=== PATIENT | male | born 1970 | race American Indian/Alaskan Native ===

== ENCOUNTER 2018-01-13 16:08 | Inpatient (IN) | payer OTHER ==
[2018-01-13] MEDS ORDERED: Pantoprazole 80 MG in Sodium Chloride 0.9% 100 ML IV ONE (16:30)
[2018-01-13] MEDS ORDERED: Sodium Chloride 0.9% 2,000 ML IV SCH (16:30)
[2018-01-13] MEDS: Sodium Chloride 0.9% 10 ML Syringe FLUSH PRN ×2 (16:41→19:10)
[2018-01-13] MEDS ORDERED: Thiamine 100 MG in Sodium Chloride 0.9% 100 ML IV ONE (16:42)
[2018-01-13] MEDS ORDERED: MVI, Adult with Vitamin K 10 ML SDV IV ONE (16:43)
[2018-01-13] MEDS: Sodium Chloride 0.9% 1,000 ML IV SCH ×2 (16:49→19:31)
--- NOTE | 2018-01-13 16:54 | EDM.PDOC ---
ED HPI GENERAL MEDICAL PROBLEM - General Chief Complaint: Gastrointestinal Problem Stated Complaint: VOMITING BLOOD Time Seen by Provider: 01/13/18 16:20 Source of Information: Reports: Patient, Family History Limitations: Reports: No Limitations - History of Present Illness INITIAL COMMENTS - FREE TEXT/NARRATIVE: Marko Seymour is a [employer] member from [place], [place] who experienced some bloody emesis last pm, and passed some dark loose stools today. His eyes have become jaundiced, and urine is dark in color. He has a chronic hx of ETOHism according to his son, without reported past complications. There is no reported hx of clotting disorder, liver disease, esophageal varicies, CA, PUD or surgery. He has meds for HBP and chronic back pain, but compliance is unknown. His son cannot recall the last time father has seen a physician. - Related Data Allergies Allergy/AdvReac Type Severity Reaction Status Date / Time No Known Allergies Allergy Verified 01/13/18 16:30 Home Meds: Home Meds . [Unable to Verify Home Med List] 01/13/18 [History] Past Medical History Cardiovascular History: Reports: Hypertension Musculoskeletal History: Reports: Back Pain, Chronic ED ROS GENERAL - Review of Systems Review Of Systems: See Below Constitutional: Reports: Malaise, Fatigue, Decreased Appetite HEENT: Reports: No Symptoms Respiratory: Reports: No Symptoms Cardiovascular: Reports: Lightheadedness Endocrine: Reports: Fatigue GI/Abdominal: Reports: Black Stool, Bloody Stool, Decreased Appetite, Hematemesis, Vomiting : Reports: Other (dark urine) Musculoskeletal: Reports: Back Pain Skin: Reports: Pallor, Bruising Neurological: Reports: Tremors Psychiatric: Reports: Other (ETOHism) Hematologic/Lymphatic: Reports: Easy Bruising Immunologic: Reports: No Symptoms ED EXAM, GI/ABD - Physical Exam Exam: See Below General Appearance: Alert, WD/WN, No Apparent Distress Eyes: Bilateral: EOMI (icterus) Ears: Normal External Exam Nose: Normal Inspection Throat/Mouth: Normal Lips, Normal Voice, No Airway Compromise, Other (poor dentition, extensive gum disease) Head: Normocephalic Neck: Normal Inspection, Supple, Non-Tender Respiratory/Chest: Lungs Clear, Normal Breath Sounds, Chest Non-Tender Cardiovascular: Regular Rate, Rhythm, No JVD, No Murmur, Other (edema 1+) GI/Abdominal Exam: Normal Bowel Sounds, Soft, Non-Tender, Distended, Hepatomegaly (Male) Exam: No Hernia Back Exam: Normal Inspection Extremities: Normal Range of Motion, Non-Tender, Pallor, Other (purpura) Neurological: Alert, Oriented, CN II-XII Intact Psychiatric: Flat Affect Skin Exam: Warm, Dry, Jaundice Lymphatic: No Adenopathy Course - Vital Signs Text/Narrative:: Following assessment at the [facility] ED, an IV was started in the LUE, administration of 2 L of NS, Protonix 80 mg IV, Thiamine 100 mg, Multivits 1 amp , Vit K 10 mg SC, and 6 units of PRBCs were set up for administration. He will be admitted to ICU. Last Recorded V/S: Last Vital Signs Temp 36.9 C 01/14/18 13:13 Pulse 86 01/14/18 00:33 Resp 18 01/14/18 13:13 BP 145/70 H 01/14/18 13:13 Pulse Ox 100 01/14/18 13:13 - Orders/Labs/Meds Orders: Active Orders 24 hr Category Date Time Status Chest 1V Frontal [CR] Stat Exams 01/13/18 16:46 Taken DRUG SCREEN, URINE ALERE [URCHEM] Stat Lab 01/13/18 21:16 Ordered PATIENT RETYPE [BBK] Stat Lab 01/13/18 16:38 Results RED BLOOD CELLS LP [BBK] Stat Lab 01/13/18 16:38 Results TYPE AND SCREEN [BBK] Stat Lab 01/13/18 16:38 Results UA W/MICROSCOPIC [URIN] Stat Lab 01/13/18 21:16 Ordered Sodium Chloride 0.9% [Saline Flush] Med 01/13/18 16:29 Active 10 ml FLUSH ASDIRECTED PRN Peripheral IV Insertion Adult [OM.PC] Routine Oth 01/13/18 16:29 Ordered Transfuse Red Blood Cells [COMM] Urgent Oth 01/13/18 16:55 Ordered Medication Orders Sodium Chloride (Normal Saline) 1,000 mls @ 100 mls/hr IV ASDIRECTED KERI Stop: 01/18/18 02:35 Sodium Chloride (Normal Saline) 250 mls @ 100 mls/hr IV ASDIRECTED KERI Lorazepam (Ativan) 0 mg PO ASDIRECTED KERI; Protocol Polyethylene Glycol/Electrolytes (Golytely) 4,000 ml PO ONETIME ONE Stop: 01/14/18 16:01 Sodium Chloride (Saline Flush) 10 ml FLUSH ASDIRECTED PRN PRN Reason: Keep Vein Open Last Admin: 01/13/18 19:10 Dose: 10 ml Admin: 01/13/18 16:41 Dose: 10 ml Labs: Laboratory Tests 01/13/18 01/13/18 01/13/18 Range/Units 16:38 16:38 16:38 WBC 13.2 H (4.5-12.0) X10-3/uL RBC 1.58 L (4.30-5.75) x10(6)uL Hgb 4.8 L* (11.5-15.5) g/dL Hct 14.9 L* (30.0-51.3) % MCV 94.5 (80-96) fL MCH 30.6 (27.7-33.6) pg MCHC 32.4 (32.2-35.4) g/dL RDW 21.6 H (11.5-15.5) % Plt Count 143 (125-369) X10(3)uL MPV 8.5 (7.4-10.4) fL Add Manual Diff Yes Neutrophils % (Manual) 71 (46-82) % Band Neutrophils % 3 (0-6) % Lymphocytes % (Manual) 15 (13-37) % Monocytes % (Manual) 11 (4-12) % Polychromasia Moderate H Anisocytosis Many H Target Cells Few PT 19.3 H (8.7-11.1) INR 1.89 H (0.89-1.13) Sodium 141 (135-145) mmol/L Potassium 3.2 L (3.5-5.3) mmol/L Chloride 107 (100-110) mmol/L Carbon Dioxide 24 (21-32) mmol/L BUN 34 H (7-18) mg/dL Creatinine 1.4 H (0.70-1.30) mg/dL Est Cr Clr Drug Dosing TNP Estimated GFR (MDRD) 54 L (>60) BUN/Creatinine Ratio 24.3 H (9-20) Glucose 138 H (80-116) mg/dL Calcium 8.1 L (8.6-10.2) mg/dL Total Bilirubin 7.3 H (0.1-1.3) mg/dL AST 81 H (5-25) IU/L ALT 30 (12-36) U/L Alkaline Phosphatase 98 (56-112) IU/L Total Protein 6.6 (6.0-8.0) g/dL Albumin 2.3 L (3.5-5.2) g/dL Globulin 4.3 g/dL Albumin/Globulin Ratio 0.5 Amylase (25-115) U/L Ethyl Alcohol (<0.03) % Blood Type Gel Antibody Screen Crossmatch 01/13/18 01/13/18 01/13/18 Range/Units 16:38 16:38 16:38 WBC (4.5-12.0) X10-3/uL RBC (4.30-5.75) x10(6)uL Hgb (11.5-15.5) g/dL Hct (30.0-51.3) % MCV (80-96) fL MCH (27.7-33.6) pg MCHC (32.2-35.4) g/dL RDW (11.5-15.5) % Plt Count (125-369) X10(3)uL MPV (7.4-10.4) fL Add Manual Diff Neutrophils % (Manual) (46-82) % Band Neutrophils % (0-6) % Lymphocytes % (Manual) (13-37) % Monocytes % (Manual) (4-12) % Polychromasia Anisocytosis Target Cells PT (8.7-11.1) INR (0.89-1.13) Sodium (135-145) mmol/L Potassium (3.5-5.3) mmol/L Chloride (100-110) mmol/L Carbon Dioxide (21-32) mmol/L BUN (7-18) mg/dL Creatinine (0.70-1.30) mg/dL Est Cr Clr Drug Dosing Estimated GFR (MDRD) (>60) BUN/Creatinine Ratio (9-20) Glucose (80-116) mg/dL Calcium (8.6-10.2) mg/dL Total Bilirubin (0.1-1.3) mg/dL AST (5-25) IU/L ALT (12-36) U/L Alkaline Phosphatase (56-112) IU/L Total Protein (6.0-8.0) g/dL Albumin (3.5-5.2) g/dL Globulin g/dL Albumin/Globulin Ratio Amylase 38 (25-115) U/L Ethyl Alcohol < 0.03 (<0.03) % Blood Type O POSITIVE Gel Antibody Screen Negative Crossmatch See Detail Meds: Medications Generic Name Dose Route Start Last Admin Trade Name Bobq PRN Reason Stop Dose Admin Sodium Chloride 1,000 mls @ 100 mls/hr 01/14/18 08:17 Normal Saline IV 01/18/18 02:35 ASDIRECTED KERI Sodium Chloride 250 mls @ 100 mls/hr 01/14/18 11:00 Normal Saline IV ASDIRECTED KERI Lorazepam 0 mg 01/14/18 11:15 Ativan PO ASDIRECTED KERI Protocol Polyethylene Glycol/Electrolytes 4,000 ml 01/14/18 16:00 Golytely PO 01/14/18 16:01 ONETIME ONE Sodium Chloride 10 ml 01/13/18 16:29 01/13/18 19:10 Saline Flush FLUSH 10 ml ASDIRECTED PRN Administration Keep Vein Open Discontinued Medications Generic Name Dose Route Start Last Admin Trade Name Hector PRN Reason Stop Dose Admin Pantoprazole Sodium 80 mg/ 100 mls @ 200 mls/hr 01/13/18 16:30 01/13/18 17:00 Sodium Chloride IV 01/13/18 16:59 200 mls/hr .BOLUS ONE Administration Sodium Chloride 250 mls @ 100 mls/hr 01/13/18 17:00 01/13/18 22:34 Normal Saline IV 100 mls/hr ASDIRECTED KERI Administration Multivitamins/Minerals 10 ml/ 1,011 mls @ 999 mls/hr 01/13/18 17:15 01/13/18 18:00 Thiamine HCl 100 mg/ Sodium IV 01/13/18 18:15 999 mls/hr Chloride ONETIME ONE Administration Sodium Chloride 1,000 mls @ 999 mls/hr 01/13/18 17:30 01/13/18 19:31 Normal Saline IV 01/14/18 18:31 999 mls/hr ASDIRECTED KERI Administration Sodium Chloride 1,000 mls @ 30 mls/hr 01/14/18 02:15 01/14/18 03:24 Normal Saline IV 01/18/18 02:35 30 mls/hr ASDIRECTED KERI Administration KVO Phytonadione 10 mg 04/04/18 17:28 01/13/18 17:33 Aquamephyton SUBCUT 01/13/18 17:29 10 mg ONETIME ONE Administration Departure - Departure Time of Disposition: 17:30 Disposition: Admitted As Inpatient 65 Condition: Poor Clinical Impression: Gastrointestinal bleeding, upper, Alcoholism, chronic - Discharge Information - Problem List & Annotations (1) Alcoholism, chronic SNOMED Code(s): 4585771 Code(s): F10.20 - ALCOHOL DEPENDENCE, UNCOMPLICATED Status: Acute Current Visit: Yes Annotation/Comment:: Empiric treatment with thiamine and multivits, monitor WSE for any sxs of withdrawl (2) Gastrointestinal bleeding, upper SNOMED Code(s): 93653764 Code(s): K92.2 - GASTROINTESTINAL HEMORRHAGE, UNSPECIFIED Status: Acute Current Visit: Yes Annotation/Comment:: Administer PPI, hydration, plan on transfusion of 4 u PRBC tonight, monitor VS and any recurrence of GI bleeding. - Problem List Review Problem List Initiated/Reviewed/Updated: Yes - My Orders Last 24 Hours: My Active Orders 01/13/18 16:29 Sodium Chloride 0.9% [Saline Flush] 10 ml FLUSH ASDIRECTED PRN Peripheral IV Insertion Adult [OM.PC] Routine 01/13/18 16:38 PATIENT RETYPE [BBK] Stat RED BLOOD CELLS LP [BBK] Stat TYPE AND SCREEN [BBK] Stat 01/13/18 16:46 Chest 1V Frontal [CR] Stat 01/13/18 16:55 Transfuse Red Blood Cells [COMM] Urgent 01/13/18 21:16 DRUG SCREEN, URINE ALERE [URCHEM] Stat UA W/MICROSCOPIC [URIN] Stat - Assessment/Plan Last 24 Hours: My Active Orders 01/13/18 16:29 Sodium Chloride 0.9% [Saline Flush] 10 ml FLUSH ASDIRECTED PRN Peripheral IV Insertion Adult [OM.PC] Routine 01/13/18 16:38 PATIENT RETYPE [BBK] Stat RED BLOOD CELLS LP [BBK] Stat TYPE AND SCREEN [BBK] Stat 01/13/18 16:46 Chest 1V Frontal [CR] Stat 01/13/18 16:55 Transfuse Red Blood Cells [COMM] Urgent 01/13/18 21:16 DRUG SCREEN, URINE ALERE [URCHEM] Stat UA W/MICROSCOPIC [URIN] Stat Plan: Hospitalist to assume care in the am, surgical consult.
[2018-01-13] MEDS ORDERED: MVI, Adult with Vitamin K 10 ML, Thiamine 100 MG in Sodium Chloride 0.9% 1,000 ML IV ONE ×3 (17:15)
[2018-01-13] MEDS: Sodium Chloride 0.9% 250 ML IV SCH ×3 (20:35→22:34)
[2018-01-14] MEDS ORDERED: Sodium Chloride 0.9% 1,000 ML IV SCH (02:15)
[2018-01-14] MEDS ORDERED: Sodium Chloride 0.9% 250 ML IV SCH (11:00)
--- NOTE | 2018-01-14 11:09 | PCM.CONS ---
H&P History of Present Illness - General Date of Service: 01/14/18 Admit Problem/Dx: Admission Diagnosis/Problem Admission Diagnosis/Problem Gastritis with hemorrhage Source of Information: Patient - History of Present Illness Initial Comments - Free Text/Narative: Pt admitted last pm with anemia. He has been having bloody bowel movements, which he describes as red in nature. Denies any melena or hematemasis as described by his ex and son. He denies any significant abd pain, very mild in the rlq. He has a hx of Etoh abuse and admits to binge drinking at least once a month. He has a hx of jaundice for the past month, this has been accompanied by orange urine as well as easy bruising. In addition to his low Hgb, for which he got 4 units of PRBCs he has elevation in his bilirubin as well as his inr. - Related Data Allergies/Adverse Reactions: Allergies Allergy/AdvReac Type Severity Reaction Status Date / Time No Known Allergies Allergy Verified 01/13/18 16:30 Home Medications: Home Meds . [Unable to Verify Home Med List] 01/13/18 [History] Past Medical History Cardiovascular History: Reports: Hypertension Other Respiratory History: smokes cigerettes Gastrointestinal History: Reports: Cirrhosis, Other (See Below) Other Gastrointestinal History: enlarged liver Musculoskeletal History: Reports: Back Pain, Chronic Other Musculoskeletal History: back surgery Psychiatric History: Reports: Addiction Other Psychiatric History: hx of etoh abuse Other Dermatologic History: various bruising all over body. Patient right medial leg, both shoulders, chest, lower right flank - Infectious Disease History Infectious Disease History: Reports: Chicken Pox - Past Surgical History Musculoskeletal Surgical History: Reports: Other (See Below) Other Musculoskeletal Surgeries/Procedures:: back surgury Social & Family History - Family History Family Medical History: Noncontributory - Tobacco Use Smoking Status *Q: Current Every Day Smoker Years of Tobacco use: 25 Packs/Tins Daily: 0.2 Used Tobacco, but Quit: No Second Hand Smoke Exposure: No - Caffeine Use Caffeine Use: Reports: Soda - Alcohol Use Date of Last Drink: 01/09/18 - Recreational Drug Use Recreational Drug Use: No H&P Review of Systems - Review of Systems: Review Of Systems: See Below General: Reports: No Symptoms, Fatigue HEENT: Reports: No Symptoms Pulmonary: Reports: No Symptoms Cardiovascular: Reports: No Symptoms Gastrointestinal: Reports: No Symptoms Genitourinary: Reports: No Symptoms Musculoskeletal: Reports: Back Pain Skin: Reports: Jaundice Exam - Exam Exam: See Below - Vital Signs Vital Signs: Last Vital Signs Temp 37.0 C 01/14/18 07:35 Pulse 86 01/14/18 00:33 Resp 13 01/14/18 07:35 BP 146/68 H 01/14/18 07:35 Pulse Ox 98 01/14/18 07:35 Weight: 88.587 kg - Exam General: Alert, Cooperative HEENT: PERRLA, EOMI, Mucosa Moist & [place], Scleral Icterus Lungs: Clear to Auscultation, Normal Respiratory Effort Cardiovascular: Regular Rate, Regular Rhythm GI/Abdominal Exam: Normal Bowel Sounds, Soft, Non-Tender Rectal (Males) Exam: Deferred Back Exam: Normal Inspection Extremities: Normal Inspection Skin: Warm, Dry, Intact - Patient Data Lab Results Last 24 hrs: Laboratory Results - last 24 hr 01/13/18 01/13/18 01/13/18 Range/Units 16:38 16:38 16:38 WBC 13.2 H (4.5-12.0) X10-3/uL RBC 1.58 L (4.30-5.75) x10(6)uL Hgb 4.8 L* (11.5-15.5) g/dL Hct 14.9 L* (30.0-51.3) % MCV 94.5 (80-96) fL MCH 30.6 (27.7-33.6) pg MCHC 32.4 (32.2-35.4) g/dL RDW 21.6 H (11.5-15.5) % Plt Count 143 (125-369) X10(3)uL MPV 8.5 (7.4-10.4) fL Neut % (Auto) (46-82) % Lymph % (Auto) (13-37) % [place] % (Auto) (4-12) % Eos % (Auto) (1.0-5.0) % Baso % (Auto) (0-2) % Neut # (Auto) (1.6-8.3) # Lymph # (Auto) (0.6-5.0) # [place] # (Auto) (0.0-1.3) # Eos # (Auto) (0.0-0.8) # Baso # (Auto) (0.0-0.2) # Add Manual Diff Yes Neutrophils % (Manual) 71 (46-82) % Band Neutrophils % 3 (0-6) % Lymphocytes % (Manual) 15 (13-37) % Monocytes % (Manual) 11 (4-12) % Polychromasia Moderate H Anisocytosis Many H Target Cells Few PT 19.3 H (8.7-11.1) INR 1.89 H (0.89-1.13) Sodium 141 (135-145) mmol/L Potassium 3.2 L (3.5-5.3) mmol/L Chloride 107 (100-110) mmol/L Carbon Dioxide 24 (21-32) mmol/L BUN 34 H (7-18) mg/dL Creatinine 1.4 H (0.70-1.30) mg/dL Est Cr Clr Drug Dosing TNP Estimated GFR (MDRD) 54 L (>60) BUN/Creatinine Ratio 24.3 H (9-20) Glucose 138 H (80-116) mg/dL Calcium 8.1 L (8.6-10.2) mg/dL Total Bilirubin 7.3 H (0.1-1.3) mg/dL AST 81 H (5-25) IU/L ALT 30 (12-36) U/L Alkaline Phosphatase 98 (56-112) IU/L Total Protein 6.6 (6.0-8.0) g/dL Albumin 2.3 L (3.5-5.2) g/dL Globulin 4.3 g/dL Albumin/Globulin Ratio 0.5 Amylase (25-115) U/L Urine Color (YELLOW) Urine Appearance (CLEAR) Urine pH (5.0-6.5) Ur Specific [place] (1.010-1.025) Urine Protein (NEGATIVE) mg/dL Urine Glucose (UA) (NEGATIVE) mg/dL Urine Ketones (NEGATIVE) mg/dL Urine Occult Blood (NEGATIVE) Urine Nitrite (NEGATIVE) Urine Bilirubin (NEGATIVE) Urine Urobilinogen (NEGATIVE) mg/dL Ur Leukocyte Esterase (NEGATIVE) Urine RBC (0) Urine WBC (0) Ur Squamous Epith Cells (NS,R,O) Urine Bacteria (NS) Urine Opiates Screen (NEGATIVE) Ur Oxycodone Screen (NEGATIVE) Ur Propoxyphene Screen (NEGATIVE) Ur Barbituates Screen (NEGATIVE) Ur Tricyclics Screen (NEGATIVE) Ur Phencyclidine Scrn (NEGATIVE) Ur Amphetamine Screen (NEGATIVE) Urine MDMA Screen (NEGATIVE) U Benzodiazepines Scrn (NEGATIVE) U Cocaine Metab Screen (NEGATIVE) U Marijuana (THC) Screen (NEGATIVE) Ethyl Alcohol (<0.03) % Blood Type Gel Antibody Screen Crossmatch 01/13/18 01/13/18 01/13/18 Range/Units 16:38 16:38 16:38 WBC (4.5-12.0) X10-3/uL RBC (4.30-5.75) x10(6)uL Hgb (11.5-15.5) g/dL Hct (30.0-51.3) % MCV (80-96) fL MCH (27.7-33.6) pg MCHC (32.2-35.4) g/dL RDW (11.5-15.5) % Plt Count (125-369) X10(3)uL MPV (7.4-10.4) fL Neut % (Auto) (46-82) % Lymph % (Auto) (13-37) % [place] % (Auto) (4-12) % Eos % (Auto) (1.0-5.0) % Baso % (Auto) (0-2) % Neut # (Auto) (1.6-8.3) # Lymph # (Auto) (0.6-5.0) # [place] # (Auto) (0.0-1.3) # Eos # (Auto) (0.0-0.8) # Baso # (Auto) (0.0-0.2) # Add Manual Diff Neutrophils % (Manual) (46-82) % Band Neutrophils % (0-6) % Lymphocytes % (Manual) (13-37) % Monocytes % (Manual) (4-12) % Polychromasia Anisocytosis Target Cells PT (8.7-11.1) INR (0.89-1.13) Sodium (135-145) mmol/L Potassium (3.5-5.3) mmol/L Chloride (100-110) mmol/L Carbon Dioxide (21-32) mmol/L BUN (7-18) mg/dL Creatinine (0.70-1.30) mg/dL Est Cr Clr Drug Dosing Estimated GFR (MDRD) (>60) BUN/Creatinine Ratio (9-20) Glucose (80-116) mg/dL Calcium (8.6-10.2) mg/dL Total Bilirubin (0.1-1.3) mg/dL AST (5-25) IU/L ALT (12-36) U/L Alkaline Phosphatase (56-112) IU/L Total Protein (6.0-8.0) g/dL Albumin (3.5-5.2) g/dL Globulin g/dL Albumin/Globulin Ratio Amylase 38 (25-115) U/L Urine Color (YELLOW) Urine Appearance (CLEAR) Urine pH (5.0-6.5) Ur Specific [place] (1.010-1.025) Urine Protein (NEGATIVE) mg/dL Urine Glucose (UA) (NEGATIVE) mg/dL Urine Ketones (NEGATIVE) mg/dL Urine Occult Blood (NEGATIVE) Urine Nitrite (NEGATIVE) Urine Bilirubin (NEGATIVE) Urine Urobilinogen (NEGATIVE) mg/dL Ur Leukocyte Esterase (NEGATIVE) Urine RBC (0) Urine WBC (0) Ur Squamous Epith Cells (NS,R,O) Urine Bacteria (NS) Urine Opiates Screen (NEGATIVE) Ur Oxycodone Screen (NEGATIVE) Ur Propoxyphene Screen (NEGATIVE) Ur Barbituates Screen (NEGATIVE) Ur Tricyclics Screen (NEGATIVE) Ur Phencyclidine Scrn (NEGATIVE) Ur Amphetamine Screen (NEGATIVE) Urine MDMA Screen (NEGATIVE) U Benzodiazepines Scrn (NEGATIVE) U Cocaine Metab Screen (NEGATIVE) U Marijuana (THC) Screen (NEGATIVE) Ethyl Alcohol < 0.03 (<0.03) % Blood Type O POSITIVE Gel Antibody Screen Negative Crossmatch See Detail 01/13/18 01/13/18 01/14/18 Range/Units 21:16 21:16 06:35 WBC 5.9 (4.5-12.0) X10-3/uL RBC 2.41 L (4.30-5.75) x10(6)uL Hgb 7.5 L (11.5-15.5) g/dL Hct 22.1 L (30.0-51.3) % MCV 91.9 (80-96) fL MCH 31.0 (27.7-33.6) pg MCHC 33.7 (32.2-35.4) g/dL RDW 19.0 H (11.5-15.5) % Plt Count 67 L (125-369) X10(3)uL MPV 8.3 (7.4-10.4) fL Neut % (Auto) 57.9 (46-82) % Lymph % (Auto) 26.5 (13-37) % [place] % (Auto) 10.1 (4-12) % Eos % (Auto) 4 (1.0-5.0) % Baso % (Auto) 2 (0-2) % Neut # (Auto) 3.4 (1.6-8.3) # Lymph # (Auto) 1.6 (0.6-5.0) # [place] # (Auto) 0.6 (0.0-1.3) # Eos # (Auto) 0.2 (0.0-0.8) # Baso # (Auto) 0.1 (0.0-0.2) # Add Manual Diff Neutrophils % (Manual) (46-82) % Band Neutrophils % (0-6) % Lymphocytes % (Manual) (13-37) % Monocytes % (Manual) (4-12) % Polychromasia Anisocytosis Target Cells PT (8.7-11.1) INR (0.89-1.13) Sodium (135-145) mmol/L Potassium (3.5-5.3) mmol/L Chloride (100-110) mmol/L Carbon Dioxide (21-32) mmol/L BUN (7-18) mg/dL Creatinine (0.70-1.30) mg/dL Est Cr Clr Drug Dosing Estimated GFR (MDRD) (>60) BUN/Creatinine Ratio (9-20) Glucose (80-116) mg/dL Calcium (8.6-10.2) mg/dL Total Bilirubin (0.1-1.3) mg/dL AST (5-25) IU/L ALT (12-36) U/L Alkaline Phosphatase (56-112) IU/L Total Protein (6.0-8.0) g/dL Albumin (3.5-5.2) g/dL Globulin g/dL Albumin/Globulin Ratio Amylase (25-115) U/L Urine Color [place] (YELLOW) Urine Appearance Clear (CLEAR) Urine pH 8.0 H (5.0-6.5) Ur Specific [place] 1.015 (1.010-1.025) Urine Protein Negative (NEGATIVE) mg/dL Urine Glucose (UA) Normal (NEGATIVE) mg/dL Urine Ketones Negative (NEGATIVE) mg/dL Urine Occult Blood Negative (NEGATIVE) Urine Nitrite Negative (NEGATIVE) Urine Bilirubin Small H (NEGATIVE) Urine Urobilinogen >=12 H (NEGATIVE) mg/dL Ur Leukocyte Esterase Negative (NEGATIVE) Urine RBC 0-5 (0) Urine WBC 0-5 (0) Ur Squamous Epith Cells Few H (NS,R,O) Urine Bacteria Few H (NS) Urine Opiates Screen Negative (NEGATIVE) Ur Oxycodone Screen Negative (NEGATIVE) Ur Propoxyphene Screen Negative (NEGATIVE) Ur Barbituates Screen Negative (NEGATIVE) Ur Tricyclics Screen Positive H (NEGATIVE) Ur Phencyclidine Scrn Negative (NEGATIVE) Ur Amphetamine Screen Negative (NEGATIVE) Urine MDMA Screen Negative (NEGATIVE) U Benzodiazepines Scrn Negative (NEGATIVE) U Cocaine Metab Screen Negative (NEGATIVE) U Marijuana (THC) Screen Positive H (NEGATIVE) Ethyl Alcohol (<0.03) % Blood Type Gel Antibody Screen Crossmatch 01/14/18 01/14/18 Range/Units 06:35 06:35 WBC (4.5-12.0) X10-3/uL RBC (4.30-5.75) x10(6)uL Hgb (11.5-15.5) g/dL Hct (30.0-51.3) % MCV (80-96) fL MCH (27.7-33.6) pg MCHC (32.2-35.4) g/dL RDW (11.5-15.5) % Plt Count (125-369) X10(3)uL MPV (7.4-10.4) fL Neut % (Auto) (46-82) % Lymph % (Auto) (13-37) % [place] % (Auto) (4-12) % Eos % (Auto) (1.0-5.0) % Baso % (Auto) (0-2) % Neut # (Auto) (1.6-8.3) # Lymph # (Auto) (0.6-5.0) # [place] # (Auto) (0.0-1.3) # Eos # (Auto) (0.0-0.8) # Baso # (Auto) (0.0-0.2) # Add Manual Diff Neutrophils % (Manual) (46-82) % Band Neutrophils % (0-6) % Lymphocytes % (Manual) (13-37) % Monocytes % (Manual) (4-12) % Polychromasia Anisocytosis Target Cells PT 19.4 H (8.7-11.1) INR 1.90 H (0.89-1.13) Sodium 142 (135-145) mmol/L Potassium 3.2 L (3.5-5.3) mmol/L Chloride 110 (100-110) mmol/L Carbon Dioxide 21 (21-32) mmol/L BUN 23 H D (7-18) mg/dL Creatinine 1.0 (0.70-1.30) mg/dL Est Cr Clr Drug Dosing 87.40 Estimated GFR (MDRD) > 60 (>60) BUN/Creatinine Ratio 23.0 H (9-20) Glucose 97 (80-116) mg/dL Calcium 7.8 L (8.6-10.2) mg/dL Total Bilirubin 6.8 H (0.1-1.3) mg/dL AST 65 H D (5-25) IU/L ALT 25 D (12-36) U/L Alkaline Phosphatase 83 (56-112) IU/L Total Protein 5.8 L (6.0-8.0) g/dL Albumin 2.1 L (3.5-5.2) g/dL Globulin 3.7 g/dL Albumin/Globulin Ratio 0.6 Amylase (25-115) U/L Urine Color (YELLOW) Urine Appearance (CLEAR) Urine pH (5.0-6.5) Ur Specific [place] (1.010-1.025) Urine Protein (NEGATIVE) mg/dL Urine Glucose (UA) (NEGATIVE) mg/dL Urine Ketones (NEGATIVE) mg/dL Urine Occult Blood (NEGATIVE) Urine Nitrite (NEGATIVE) Urine Bilirubin (NEGATIVE) Urine Urobilinogen (NEGATIVE) mg/dL Ur Leukocyte Esterase (NEGATIVE) Urine RBC (0) Urine WBC (0) Ur Squamous Epith Cells (NS,R,O) Urine Bacteria (NS) Urine Opiates Screen (NEGATIVE) Ur Oxycodone Screen (NEGATIVE) Ur Propoxyphene Screen (NEGATIVE) Ur Barbituates Screen (NEGATIVE) Ur Tricyclics Screen (NEGATIVE) Ur Phencyclidine Scrn (NEGATIVE) Ur Amphetamine Screen (NEGATIVE) Urine MDMA Screen (NEGATIVE) U Benzodiazepines Scrn (NEGATIVE) U Cocaine Metab Screen (NEGATIVE) U Marijuana (THC) Screen (NEGATIVE) Ethyl Alcohol (<0.03) % Blood Type Gel Antibody Screen Crossmatch Result Diagrams: 01/14/18 06:35 01/14/18 06:35 Consult PN Assessment/Plan (1) Lower GI bleed SNOMED Code(s): 35253288 Code(s): K92.2 - GASTROINTESTINAL HEMORRHAGE, UNSPECIFIED Current Visit: Yes (2) Hepatotoxicity, secondary to ETOH SNOMED Code(s): 68235195 Code(s): K70.9 - ALCOHOLIC LIVER DISEASE, UNSPECIFIED Current Visit: Yes (3) Alcoholism, chronic SNOMED Code(s): 0313585 Code(s): F10.20 - ALCOHOL DEPENDENCE, UNCOMPLICATED Current Visit: Yes Comment: Empiric treatment with thiamine and multivits, monitor WSE for any sxs of withdrawl Problem List Initiated/Reviewed/Updated: Yes My Orders Last 24 Hours: My Active Orders 01/14/18 10:55 FRESH FROZEN PLASMA [BBK] Routine Transfuse Fresh Frozen Plasma [COMM] Routine 01/14/18 11:00 CIWAA Assessment [RC] Q4H Sodium Chloride 0.9% [Normal Saline] 250 ml IV ASDIRECTED 01/14/18 11:01 Notify Provider [RC] PRN 01/14/18 11:02 Verify Patient Consent Obtain [RC] ASDIRECTED 01/14/18 11:15 LORazepam [Ativan] See Protocol PO ASDIRECTED 01/14/18 16:00 KCl/Na Sulf,Bicarb,Cl/PEG 3351 [GoLytely] 4,000 ml PO ONETIME ONE 01/14/18 20:00 CBC WITH AUTO DIFF [HEME] Timed INR,PT,PROTHROMBIN TIME [COAG] Routine 01/14/18 Dinner NPO After Midnight [Nothing per Oral After Midnight Diet] [DIET] 01/14/18 Lunch Clear Liquid Diet [DIET] Plan: DT prophylaxis. ffp for the elevated INR. bowel prep for c scope in am. I don't feel he requires an upper endoscopy at this time. risks of procedure explained to the pt to include bleeding, infection and perforation. he asks us to proceed.
[2018-01-14] MEDS ORDERED: LORazepam 1 MG Tab PO SCH (11:15)
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
--- NOTE | 2018-01-14 13:41 | PN ---
DATE SEEN: 01/14/2018 SUBJECTIVE: Marko Seymour is a 47-year-old male, admitted last evening to ICU, complicated, likely upper GI bleed. Stable through the night without complaints. Hemoglobin risen from 4.8 to 7.5, platelets have fallen from 143 to 67, coagulation since revealed persistent coagulopathy due to liver disease. INR 1.89, 1.90. Bilirubin has fallen from 7.3 to 6.8, but persistently elevated liver enzymes. OBJECTIVE: VITAL SIGNS: Temperature 37 degrees, blood pressure 146/68, respirations 13, and pulse of 85. GENERAL: Bright, awake and alert. No obvious distress. NECK: Benign. Thyroid small. CHEST: Clear in all lung saha. HEART: Regular without ectopy or murmur. ABDOMEN: Benign. Little tender epigastrium. Bruising noted. ASSESSMENT: Acute upper gastrointestinal bleed, likely secondary to esophageal varices. PLAN: Consultation Dr. Suzanna Keys, complementary care and well being, ice chips in the meantime, intervention and care, close observation. Further transfusions under Dr. Keys's review. /[id number] /KAYLA
[2018-01-14] MEDS ORDERED: Polyethylene Glycol/Electrolytes 4,000 ML Bottle PO ONE (16:00)
[2018-01-14] MEDS: Sodium Chloride 0.9% 1,000 ML IV SCH (20:31)
--- NOTE | 2018-01-15 07:47 | PCM.SN ---
- Free Text/Narrative Note: [possibility of an upper endoscopy added to the consent if the c scope is negative. he gives permission for this.
[2018-01-15] MEDS ORDERED: Lidocaine 4% 5 ML Amp INJECT ONE (08:00)
[2018-01-15] MEDS ORDERED: Propofol 200 MG/20 ML SDV IV ONE (08:00)
[2018-01-15] MEDS ORDERED: Ketamine 500 mg/10 ML MDV IV ONE (08:00)
[2018-01-15] MEDS ORDERED: fentaNYL 100 MCG/2 ML SDV IV ONE (08:00)
[2018-01-15] MEDS ORDERED: Midazolam 1 MG/ML 2 ML SDV IV ONE (08:00)
[2018-01-15] MEDS ORDERED: Lidocaine 2% 100 MG/5 ML Syringe IVPUSH ONE (08:00)
[2018-01-15] MEDS ORDERED: Simethicone Drops 40 MG/0.6 ML 30 ML Bottle ONE (08:16)
[2018-01-15] MEDS: Sodium Chloride 0.9% 1,000 ML IV SCH (08:49)
--- NOTE | 2018-01-15 08:55 | PCM.OPNOTE ---
- General Post-Op/Procedure Note Date of Surgery/Procedure: 01/15/18 Operative Procedure(s): c scope and egd Findings: no overt source of bleeding upper or lower. sigmoid diverticulosis Pre Op Diagnosis: gi bleed Post-Op Diagnosis: no overt source of bleeding upper or lower. sigmoid diverticulosis Anesthesia Technique: MAC Primary Surgeon: Kodi Keys Anesthesia Provider: Marielena Nickerson Pathology: none Complications: None Condition: Fair Free Text/Narrative:: Intake & Output 01/14/18 01/15/18 01/15/18 22:59 06:59 14:59 Intake Total 2792 961 250 Output Total 1050 Balance 2792 961 -800
--- NOTE | 2018-01-15 08:57 | PCM.SN ---
- Free Text/Narrative Note: based on findings has no active bleeding site noted. needs to have Etoh use addressed zeinab with the state of his coags and lfts. consider a capsule endosocopy, could be done as an outpt. will sign off.
--- NOTE | 2018-01-15 09:19 | CR ---
INDICATION: Purpura, liver enlargement. CHEST: An AP upright view of the chest was obtained 01/13/2018 - no comparisons. The heart is normal in size and shape. Overlying EKG leads are noted. An active infiltrate or effusion was not identified. IMPRESSION: No acute process. MTDD
--- NOTE | 2018-01-15 15:38 | OR ---
DATE OF OPERATION: 01/15/2018 SURGEON: Kodi Keys MD PROCEDURES PERFORMED: 1. Colonoscopy. 2. Upper endoscopy. PREOPERATIVE DIAGNOSIS: Gastrointestinal bleed. POSTOPERATIVE DIAGNOSIS: Sigmoid diverticulosis. INDICATIONS FOR PROCEDURE: Mr. Seymour is a 47-year-old male who was admitted 2 days ago with evidence of a gastrointestinal bleed. There was some confusion as to the exact source. Family members reported hematemesis, coffee-grounds emesis; however, on questioning of the patient, he reported bleeding per rectum. On the basis of this, he was offered a colonoscopy, and later, in addition, an EGD if the colonoscopy was negative. It should be noted that the patient has had a low hemoglobin of 4.5 on admission. This was transfused with 4 units and is hovering around 7.5. His INR is also out, and he required a 3-unit transfusion of fresh frozen plasma to get his INR down to 1.59. DESCRIPTION OF PROCEDURE: After an excellent IV sedation was administered, digital rectal exam was performed. No marked abnormality was noted. The flexible colonoscope was inserted and advanced to the cecum without difficulty. The prep was excellent. The following findings were noted: Ascending colon unremarkable. Transverse colon unremarkable. Descending colon unremarkable. Sigmoid: Mild diverticulosis with no active bleeding noted. Rectum and anus unremarkable. There was no evidence of any hemorrhoidal varices noted. Because of the unremarkable findings on our lower scope, we then proceeded with the upper endoscopy. The bite block was inserted. The flexible endoscope was passed without difficulty down the patient's esophagus into the stomach. The stomach was insufflated. The scope was passed through the pylorus to the second portion of the duodenum and slowly withdrawn. The following findings were noted: The duodenum was unremarkable. The stomach was unremarkable with no evidence of ulcerations or inflammation in either one of these structures. Evaluation of the esophagus revealed no overt evidence of gastric varices to my eye. No evidence of esophagitis. The stomach was deflated, and the scope was removed. The patient tolerated the procedure well and was taken to the recovery room in good condition. /[id number] /MODL
--- NOTE | 2018-01-15 17:35 | PCM.PN ---
- General Info Date of Service: 01/15/18 - Patient Data Vitals - Most Recent: Last Vital Signs Temp 98.8 F 01/15/18 12:00 Pulse 97 01/15/18 12:00 Resp 16 01/15/18 12:00 BP 126/74 01/15/18 12:00 Pulse Ox 100 01/15/18 12:00 Weight - Most Recent: 88.587 kg I&O - Last 24 Hours: Intake & Output 01/15/18 01/15/18 01/15/18 06:59 14:59 22:59 Intake Total 961 1550 Output Total 1050 Balance 961 500 Lab Results Last 24 Hours: Laboratory Results - last 24 hr 01/13/18 01/14/18 01/14/18 Range/Units 16:38 20:30 20:30 WBC 7.0 (4.5-12.0) X10-3/uL RBC 2.89 L (4.30-5.75) x10(6)uL Hgb 8.7 L (11.5-15.5) g/dL Hct 26.4 L (30.0-51.3) % MCV 91.6 (80-96) fL MCH 30.1 (27.7-33.6) pg MCHC 32.8 (32.2-35.4) g/dL RDW 18.9 H (11.5-15.5) % Plt Count 93 L (125-369) X10(3)uL MPV 8.4 (7.4-10.4) fL Neut % (Auto) 58.9 (46-82) % Lymph % (Auto) 23.6 (13-37) % [place] % (Auto) 11.8 (4-12) % Eos % (Auto) 4 (1.0-5.0) % Baso % (Auto) 2 (0-2) % Neut # (Auto) 4.1 (1.6-8.3) # Lymph # (Auto) 1.7 (0.6-5.0) # Ector # (Auto) 0.8 (0.0-1.3) # Eos # (Auto) 0.3 (0.0-0.8) # Baso # (Auto) 0.1 (0.0-0.2) # PT 15.6 H (8.7-11.1) INR 1.53 H (0.89-1.13) Blood Type O POSITIVE Gel Antibody Screen Negative Crossmatch See Detail 01/15/18 01/15/18 Range/Units 06:10 06:10 WBC (4.5-12.0) X10-3/uL RBC (4.30-5.75) x10(6)uL Hgb 7.3 L (11.5-15.5) g/dL Hct 22.3 L (30.0-51.3) % MCV (80-96) fL MCH (27.7-33.6) pg MCHC (32.2-35.4) g/dL RDW (11.5-15.5) % Plt Count (125-369) X10(3)uL MPV (7.4-10.4) fL Neut % (Auto) (46-82) % Lymph % (Auto) (13-37) % [place] % (Auto) (4-12) % Eos % (Auto) (1.0-5.0) % Baso % (Auto) (0-2) % Neut # (Auto) (1.6-8.3) # Lymph # (Auto) (0.6-5.0) # Ector # (Auto) (0.0-1.3) # Eos # (Auto) (0.0-0.8) # Baso # (Auto) (0.0-0.2) # PT 16.3 H (8.7-11.1) INR 1.59 H (0.89-1.13) Blood Type Gel Antibody Screen Crossmatch Med Orders - Current: Current Medications Lorazepam (Ativan) 0 mg PO ASDIRECTED KERI; Protocol Sodium Chloride (Saline Flush) 10 ml FLUSH ASDIRECTED PRN PRN Reason: Keep Vein Open Last Admin: 01/13/18 19:10 Dose: 10 ml Discontinued Medications Fentanyl (Sublimaze) 100 mcg IV .STK-MED ONE Stop: 01/15/18 08:01 Pantoprazole Sodium 80 mg/ (Sodium Chloride) 100 mls @ 200 mls/hr IV .BOLUS ONE Stop: 01/13/18 16:59 Last Admin: 01/13/18 17:00 Dose: 200 mls/hr Sodium Chloride (Normal Saline) 250 mls @ 100 mls/hr IV ASDIRECTED [facility] Last Admin: 01/13/18 22:34 Dose: 100 mls/hr Multivitamins/Minerals 10 ml/Thiamine HCl 100 mg/ Sodium Chloride 1,011 mls @ 999 mls/hr IV ONETIME ONE Stop: 01/13/18 18:15 Last Admin: 01/13/18 18:00 Dose: 999 mls/hr Sodium Chloride (Normal Saline) 1,000 mls @ 999 mls/hr IV ASDIRECTED [facility] Stop: 01/14/18 18:31 Last Admin: 01/13/18 19:31 Dose: 999 mls/hr Sodium Chloride (Normal Saline) 1,000 mls @ 30 mls/hr IV ASDIRECTED [facility] Stop: 01/18/18 02:35 Last Admin: 01/14/18 03:24 Dose: 30 mls/hr Sodium Chloride (Normal Saline) 1,000 mls @ 100 mls/hr IV ASDIRECTED [facility] Stop: 01/18/18 02:35 Last Admin: 01/15/18 08:49 Dose: 100 mls/hr Sodium Chloride (Normal Saline) 250 mls @ 100 mls/hr IV ASDIRECTED [facility] Ketamine HCl (Ketalar) 50 mg IV .STK-MED ONE Stop: 01/15/18 08:01 Lidocaine HCl (Xylocaine 2%) 80 mg IVPUSH .STK-MED ONE Stop: 01/15/18 08:01 Lidocaine HCl (Xylocaine-Mpf 4%) 5 ml INJECT .STK-MED ONE Stop: 01/15/18 08:01 Midazolam HCl (Versed 1 Mg/Ml) 2 mg IV .STK-MED ONE Stop: 01/15/18 08:01 Phytonadione (Aquamephyton) 10 mg SUBCUT ONETIME ONE Stop: 01/13/18 17:29 Last Admin: 01/13/18 17:33 Dose: 10 mg Polyethylene Glycol/Electrolytes (Golytely) 4,000 ml PO ONETIME ONE Stop: 01/14/18 16:01 Last Admin: 01/14/18 16:33 Dose: 4,000 ml Propofol (Diprivan 20 Ml) 300 mg IV .STK-MED ONE Stop: 01/15/18 08:01 Simethicone (Infants' Gas Relief) 40 mg .XX .STK-MED ONE Stop: 01/15/18 08:17 Last Admin: 01/15/18 08:16 Dose: 40 mg - My Orders Last 24 Hours: My Active Orders 01/15/18 Breakfast Regular Diet [DIET]
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
[2018-01-16] MEDS: Folic Acid 1 MG Tab PO SCH (09:30)
[2018-01-16] MEDS: Nicotine 14 MG/24 Hr Patch TRDERM SCH (09:31)
[2018-01-16] MEDS: Multivitamin Tab PO SCH (09:32)
--- NOTE | 2018-01-16 11:42 | PCM.PN ---
- General Info Date of Service: 01/16/18 Subjective Update: Patient sitting upright in chair. Somnolent. No acute cardiac pulmonary distress. No signs of alcohol withdrawal. He is undergoing ciwaa protocol. Family filed involuntary commitment for his alcohol abuse after this recent life -threatening event. he does not want to go b/c he does not believe etoh is the cause for his problem. still has some vague abdominal crampiness but is passing flatus and no further melena. No hematochezia. His appetite is improved. Denies feeling lightheaded or dizzy on standing. Chronic low back pain for which he had fusion in the past. Has chronic peripheral neuropathy. both of these he was on a pain contract for a few years ago but cut off due to non adherence and diversion participation. tells me this is why he drinks. - Review of Systems Systems Review Comment:: see subjective - Patient Data Vitals - Most Recent: Last Vital Signs Temp 98.5 F 01/16/18 08:00 Pulse 92 01/16/18 08:00 Resp 16 01/16/18 08:00 BP 143/92 H 01/16/18 08:00 Pulse Ox 100 01/16/18 08:00 Weight - Most Recent: 88.587 kg I&O - Last 24 Hours: Intake & Output 01/15/18 01/16/18 22:59 06:59 Intake Total 300 100 Output Total 900 500 Balance -600 -400 Lab Results Last 24 Hours: Laboratory Results - last 24 hr 01/15/18 01/16/18 01/16/18 Range/Units 16:35 06:15 06:15 WBC 6.2 (4.5-12.0) X10-3/uL RBC 2.64 L (4.30-5.75) x10(6)uL Hgb 7.9 L (11.5-15.5) g/dL Hct 24.0 L (30.0-51.3) % MCV 91.0 (80-96) fL MCH 30.0 (27.7-33.6) pg MCHC 33.0 (32.2-35.4) g/dL RDW 19.4 H (11.5-15.5) % Plt Count 78 L (125-369) X10(3)uL PT 16.0 H (8.7-11.1) INR 1.57 H (0.89-1.13) Sodium (135-145) mmol/L Potassium (3.5-5.3) mmol/L Chloride (100-110) mmol/L Carbon Dioxide (21-32) mmol/L BUN (7-18) mg/dL Creatinine (0.70-1.30) mg/dL Est Cr Clr Drug Dosing mL/min Estimated GFR (MDRD) (>60) BUN/Creatinine Ratio (9-20) Glucose (80-116) mg/dL Calcium (8.6-10.2) mg/dL Total Bilirubin (0.1-1.3) mg/dL Direct Bilirubin 3.59 H (0.10-0.20) mg/dL AST (5-25) IU/L ALT (12-36) U/L Alkaline Phosphatase (56-112) IU/L Total Protein (6.0-8.0) g/dL Albumin (3.5-5.2) g/dL Globulin g/dL Albumin/Globulin Ratio 01/16/18 Range/Units 06:15 WBC (4.5-12.0) X10-3/uL RBC (4.30-5.75) x10(6)uL Hgb (11.5-15.5) g/dL Hct (30.0-51.3) % MCV (80-96) fL MCH (27.7-33.6) pg MCHC (32.2-35.4) g/dL RDW (11.5-15.5) % Plt Count (125-369) X10(3)uL PT (8.7-11.1) INR (0.89-1.13) Sodium 136 (135-145) mmol/L Potassium 2.9 L (3.5-5.3) mmol/L Chloride 105 D (100-110) mmol/L Carbon Dioxide 23 (21-32) mmol/L BUN 9 D (7-18) mg/dL Creatinine 0.9 (0.70-1.30) mg/dL Est Cr Clr Drug Dosing 97.11 mL/min Estimated GFR (MDRD) > 60 (>60) BUN/Creatinine Ratio 10.0 (9-20) Glucose 92 (80-116) mg/dL Calcium 7.8 L (8.6-10.2) mg/dL Total Bilirubin 5.9 H (0.1-1.3) mg/dL Direct Bilirubin (0.10-0.20) mg/dL AST 51 H D (5-25) IU/L ALT 24 (12-36) U/L Alkaline Phosphatase 110 (56-112) IU/L Total Protein 5.9 L (6.0-8.0) g/dL Albumin 2.2 L (3.5-5.2) g/dL Globulin 3.7 g/dL Albumin/Globulin Ratio 0.6 Med Orders - Current: Current Medications Folic Acid (Folic Acid) 1 mg PO DAILY [facility] Last Admin: 01/16/18 09:30 Dose: 1 mg Potassium Chloride 20 meq/ (Premix) 100 mls @ 50 mls/hr IV Q2H [facility] Stop: 01/16/18 13:59 Lorazepam (Ativan) 0 mg PO ASDIRECTED [facility]; Protocol Lorazepam (Ativan) 1 mg PO Q4H [facility] Multivitamins/Minerals/Vitamin C (Tab-A-Cady) 1 tab PO DAILY [facility] Last Admin: 01/16/18 09:32 Dose: 1 tab Nicotine (Habitrol) 14 mg TRDERM DAILY [facility] Last Admin: 01/16/18 09:31 Dose: 14 mg Propranolol HCl (Inderal) 40 mg PO BID [facility] Sodium Chloride (Saline Flush) 10 ml FLUSH ASDIRECTED PRN PRN Reason: Keep Vein Open Last Admin: 01/13/18 19:10 Dose: 10 ml Discontinued Medications Fentanyl (Sublimaze) 100 mcg IV .STK-MED ONE Stop: 01/15/18 08:01 Pantoprazole Sodium 80 mg/ (Sodium Chloride) 100 mls @ 200 mls/hr IV .BOLUS ONE Stop: 01/13/18 16:59 Last Admin: 01/13/18 17:00 Dose: 200 mls/hr Sodium Chloride (Normal Saline) 250 mls @ 100 mls/hr IV ASDIRECTED [facility] Last Admin: 01/13/18 22:34 Dose: 100 mls/hr Multivitamins/Minerals 10 ml/Thiamine HCl 100 mg/ Sodium Chloride 1,011 mls @ 999 mls/hr IV ONETIME ONE Stop: 01/13/18 18:15 Last Admin: 01/13/18 18:00 Dose: 999 mls/hr Sodium Chloride (Normal Saline) 1,000 mls @ 999 mls/hr IV ASDIRECTED [facility] Stop: 01/14/18 18:31 Last Admin: 01/13/18 19:31 Dose: 999 mls/hr Sodium Chloride (Normal Saline) 1,000 mls @ 30 mls/hr IV ASDIRECTED [facility] Stop: 01/18/18 02:35 Last Admin: 01/14/18 03:24 Dose: 30 mls/hr Sodium Chloride (Normal Saline) 1,000 mls @ 100 mls/hr IV ASDIRECTED [facility] Stop: 01/18/18 02:35 Last Admin: 01/15/18 08:49 Dose: 100 mls/hr Sodium Chloride (Normal Saline) 250 mls @ 100 mls/hr IV ASDIRECTED [facility] Ketamine HCl (Ketalar) 50 mg IV .STK-MED ONE Stop: 01/15/18 08:01 Lidocaine HCl (Xylocaine 2%) 80 mg IVPUSH .STK-MED ONE Stop: 01/15/18 08:01 Lidocaine HCl (Xylocaine-Mpf 4%) 5 ml INJECT .STK-MED ONE Stop: 01/15/18 08:01 Midazolam HCl (Versed 1 Mg/Ml) 2 mg IV .STK-MED ONE Stop: 01/15/18 08:01 Phytonadione (Aquamephyton) 10 mg SUBCUT ONETIME ONE Stop: 01/13/18 17:29 Last Admin: 01/13/18 17:33 Dose: 10 mg Polyethylene Glycol/Electrolytes (Golytely) 4,000 ml PO ONETIME ONE Stop: 01/14/18 16:01 Last Admin: 01/14/18 16:33 Dose: 4,000 ml Propofol (Diprivan 20 Ml) 300 mg IV .STK-MED ONE Stop: 01/15/18 08:01 Simethicone (Infants' Gas Relief) 40 mg .XX .STK-MED ONE Stop: 01/15/18 08:17 Last Admin: 01/15/18 08:16 Dose: 40 mg - Exam Physical Findings Comments:: Quality Assessment: DVT Prophylaxis General: Cooperative, No Acute Distress, Lethargic HEENT: Mucous Membr. Moist/[place], Scleral Icterus Neck: Trachea Midline, No Thyromegaly Lungs: Clear to Auscultation, Normal Respiratory Effort Cardiovascular: Regular Rate, Regular Rhythm GI/Abdominal Exam: Normal Bowel Sounds, Distended, Hepatomegaly, Splenomegaly, Other (1 cm umbilical hernia reducible) Back Exam: No: Paraspinal Tenderness, Vertebral Tenderness Extremities: Pedal Edema. No: Ashley's Sign, Increased Warmth, Pallor, Redness Skin: Ecchymosis, Other (jaundice worsening) Neurological: No New Focal Deficit, Other (shuffled gait with imbalance), reflexes 2+ which is increased. Psy/Mental Status: Depressed. No: Normal Affect (flat), Withdrawal Symptoms - Problem List & Annotations (1) GI bleed SNOMED Code(s): 30421741 Code(s): K92.2 - GASTROINTESTINAL HEMORRHAGE, UNSPECIFIED Status: Acute Priority: High Qualifiers: GI bleed type/associated pathology: gastrointestinal hemorrhage with hematemesis Qualified Code(s): K92.0 - Hematemesis (2) Anemia associated with acute blood loss SNOMED Code(s): 025098145 Code(s): D62 - ACUTE POSTHEMORRHAGIC ANEMIA Status: Acute (3) Hepatotoxicity, secondary to ETOH SNOMED Code(s): 83508955 Code(s): K70.9 - ALCOHOLIC LIVER DISEASE, UNSPECIFIED Status: Acute Priority: High (4) Hyperbilirubinemia SNOMED Code(s): 98416329 Code(s): E80.6 - OTHER DISORDERS OF BILIRUBIN METABOLISM Status: Acute (5) Acute hypokalemia SNOMED Code(s): 14117699 Code(s): E87.6 - HYPOKALEMIA Status: Acute (6) Altered mental status SNOMED Code(s): 697558116 Code(s): R41.82 - ALTERED MENTAL STATUS, UNSPECIFIED Status: Acute Qualifiers: Altered mental status type: somnolence Qualified Code(s): R40.0 - Somnolence (7) Alcoholism, chronic SNOMED Code(s): 6970561 Code(s): F10.20 - ALCOHOL DEPENDENCE, UNCOMPLICATED Status: Acute (8) Blood transfusion during current hospitalization SNOMED Code(s): 996129672, 240501583 Code(s): ZWV0436 - Status: Acute - Problem List Review Problem List Initiated/Reviewed/Updated: Yes - My Orders Last 24 Hours: My Active Orders 01/16/18 09:00 Folic Acid 1 mg PO DAILY Multivitamins [Tab-A-Cady] 1 tab PO DAILY Nicotine [Habitrol] 14 mg TRDERM DAILY 01/16/18 10:00 LORazepam [Ativan] 1 mg PO Q4H Potassium Chloride [KCL 20 MEQ in Water 100 ML] 20 meq Premix Bag 1 bag IV Q2H Propranolol [Inderal] 40 mg PO BID 01/16/18 11:42 Telemetry Monitoring [Cardiac Monitoring] [RC] .As Directed 01/16/18 16:00 COMPREHENSIVE METABOLIC PN,CMP [CHEM] Timed - Assessment Assessment:: see above - Plan Plan:: he would like to go out to smoke a cig, but agrees to nicotine patch. hep labs and ammonia pending. Worsening jaundice as expected with resumption of cirrhosis and recent blood products. Monitor closely. Him on telemetry replacement potassium. His reflexes are becoming increase tingling possibility of the onset of withdrawal symptoms. Will monitor closely and continue protocol. Will start lorazepam scheduled in order to prevent withdrawal if this could be detrimental with regards to causing repeat bleed, hemorrhage or stroke , heart failure due to stress. Propranolol will be added as well for esophageal varus see prevention, these were not seen on EGD however the focal bleed was not identified. Will require video capsulography in the future. Nursing made aware of condition and parameters to call.
[2018-01-16] MEDS: Potassium Chloride 20 MEQ in Premix Bag 1 BAG IV SCH ×2 (13:46→15:29)
[2018-01-16] MEDS ORDERED: Sodium Chloride 0.9% 1,000 ML IV SCH (13:46)
[2018-01-16] MEDS: Propranolol 40 MG Tab PO SCH ×2 (13:47→20:35)
[2018-01-16] MEDS: LORazepam 1 MG Tab PO SCH ×4 (13:53→22:16)
[2018-01-17] MEDS: LORazepam 1 MG Tab PO SCH ×4 (02:39→14:08)
[2018-01-17] MEDS: Folic Acid 1 MG Tab PO SCH (08:54)
[2018-01-17] MEDS: Nicotine 14 MG/24 Hr Patch TRDERM SCH (08:54)
[2018-01-17] MEDS: Propranolol 40 MG Tab PO SCH ×2 (08:55→20:25)
[2018-01-17] MEDS: Multivitamin Tab PO SCH (08:55)
--- NOTE | 2018-01-17 09:06 | PCM.PN ---
- General Info Date of Service: 01/17/18 Subjective Update: tolerating ativan, but did miss 2 doses as he did not want to be awakened. no complications on tele with start of propranolol and potassium. h/h stable without s/s of repeat bleed. still vague abdomenal crampiness without melena hematochezia or flank pain. No dysuria. He has had a bowel movement. Passing flatus. Denies nausea or vomiting. No headache. Denies any visual auditory or tactile hallucinations. Is becoming more anxious and agitated wanting to go home. Did attempt to leave AMA however I did talk with him over the evening and he decided to stay. These are symptoms of impending withdrawal. Slightly more tremulous. Discussion had with the family regarding not bringing outside food or close at this time. He is still adamant that he doesnt want to go to inpatient treatment. Family still insistent that they will not take him home and he has not appropriate for outpatient management secondary to his acute comorbidity and reset life-threatening GI bleed. Functional Status: Reports: Pain Controlled, Tolerating Diet, Ambulating, Urinating, Incentive Spirometry - Review of Systems Systems Review Comment:: see above. - Patient Data Vitals - Most Recent: Last Vital Signs Temp 98.1 F 01/17/18 04:00 Pulse 74 01/17/18 04:00 Resp 18 01/17/18 04:00 BP 130/67 01/17/18 04:00 Pulse Ox 99 01/17/18 04:00 Weight - Most Recent: 88.587 kg I&O - Last 24 Hours: Intake & Output 01/16/18 01/17/18 22:59 06:59 Intake Total 0 Output Total 400 Balance -400 Lab Results Last 24 Hours: Laboratory Results - last 24 hr 01/13/18 01/16/18 Range/Units 16:38 16:02 Sodium 136 (135-145) mmol/L Potassium 3.5 (3.5-5.3) mmol/L Chloride 104 (100-110) mmol/L Carbon Dioxide 24 (21-32) mmol/L BUN 10 (7-18) mg/dL Creatinine 1.0 (0.70-1.30) mg/dL Est Cr Clr Drug Dosing 87.40 mL/min Estimated GFR (MDRD) > 60 (>60) BUN/Creatinine Ratio 10.0 (9-20) Glucose 100 (80-116) mg/dL Calcium 7.9 L (8.6-10.2) mg/dL Total Bilirubin 5.5 H (0.1-1.3) mg/dL AST 52 H (5-25) IU/L ALT 26 (12-36) U/L Alkaline Phosphatase 121 H (56-112) IU/L Total Protein 6.5 (6.0-8.0) g/dL Albumin 2.3 L (3.5-5.2) g/dL Globulin 4.2 g/dL Albumin/Globulin Ratio 0.6 Crossmatch See Detail Med Orders - Current: Current Medications Folic Acid (Folic Acid) 1 mg PO DAILY [facility] Last Admin: 01/17/18 08:54 Dose: 1 mg Lorazepam (Ativan) 0 mg PO ASDIRECTED [facility]; Protocol Lorazepam (Ativan) 1 mg PO Q4H [facility] Last Admin: 01/17/18 06:18 Dose: Not Given Multivitamins/Minerals/Vitamin C (Tab-A-Cady) 1 tab PO DAILY [facility] Last Admin: 01/17/18 08:55 Dose: 1 tab Nicotine (Habitrol) 14 mg TRDERM DAILY [facility] Last Admin: 01/17/18 08:54 Dose: 14 mg Propranolol HCl (Inderal) 40 mg PO BID [facility] Last Admin: 01/17/18 08:55 Dose: 40 mg Sodium Chloride (Saline Flush) 10 ml FLUSH ASDIRECTED PRN PRN Reason: Keep Vein Open Last Admin: 01/13/18 19:10 Dose: 10 ml Discontinued Medications Fentanyl (Sublimaze) 100 mcg IV .STK-MED ONE Stop: 01/15/18 08:01 Pantoprazole Sodium 80 mg/ (Sodium Chloride) 100 mls @ 200 mls/hr IV .BOLUS ONE Stop: 01/13/18 16:59 Last Admin: 01/13/18 17:00 Dose: 200 mls/hr Sodium Chloride (Normal Saline) 250 mls @ 100 mls/hr IV ASDIRECTED [facility] Last Admin: 01/13/18 22:34 Dose: 100 mls/hr Multivitamins/Minerals 10 ml/Thiamine HCl 100 mg/ Sodium Chloride 1,011 mls @ 999 mls/hr IV ONETIME ONE Stop: 01/13/18 18:15 Last Admin: 01/13/18 18:00 Dose: 999 mls/hr Sodium Chloride (Normal Saline) 1,000 mls @ 999 mls/hr IV ASDIRECTED [facility] Stop: 01/14/18 18:31 Last Admin: 01/13/18 19:31 Dose: 999 mls/hr Sodium Chloride (Normal Saline) 1,000 mls @ 30 mls/hr IV ASDIRECTED [facility] Stop: 01/18/18 02:35 Last Admin: 01/14/18 03:24 Dose: 30 mls/hr Sodium Chloride (Normal Saline) 1,000 mls @ 100 mls/hr IV ASDIRECTED [facility] Stop: 01/18/18 02:35 Last Admin: 01/15/18 08:49 Dose: 100 mls/hr Sodium Chloride (Normal Saline) 250 mls @ 100 mls/hr IV ASDIRECTED [facility] Potassium Chloride 20 meq/ (Premix) 100 mls @ 50 mls/hr IV Q2H [facility] Stop: 01/16/18 13:59 Last Admin: 01/16/18 15:29 Dose: 50 mls/hr Sodium Chloride (Normal Saline) 1,000 mls @ 100 mls/hr IV ASDIRECTED [facility] Last Admin: 01/16/18 13:46 Dose: 100 mls/hr Ketamine HCl (Ketalar) 50 mg IV .STK-MED ONE Stop: 01/15/18 08:01 Lidocaine HCl (Xylocaine 2%) 80 mg IVPUSH .STK-MED ONE Stop: 01/15/18 08:01 Lidocaine HCl (Xylocaine-Mpf 4%) 5 ml INJECT .STK-MED ONE Stop: 01/15/18 08:01 Midazolam HCl (Versed 1 Mg/Ml) 2 mg IV .STK-MED ONE Stop: 01/15/18 08:01 Phytonadione (Aquamephyton) 10 mg SUBCUT ONETIME ONE Stop: 01/13/18 17:29 Last Admin: 01/13/18 17:33 Dose: 10 mg Polyethylene Glycol/Electrolytes (Golytely) 4,000 ml PO ONETIME ONE Stop: 01/14/18 16:01 Last Admin: 01/14/18 16:33 Dose: 4,000 ml Propofol (Diprivan 20 Ml) 300 mg IV .STK-MED ONE Stop: 01/15/18 08:01 Simethicone (Infants' Gas Relief) 40 mg .XX .STK-MED ONE Stop: 01/15/18 08:17 Last Admin: 01/15/18 08:16 Dose: 40 mg - Exam Physical Findings Comments:: Quality Assessment: DVT Prophylaxis General: Cooperative, No Acute Distress, improved alertness HEENT: Mucous Membr. Moist/[place], Scleral Icterus Neck: Trachea Midline, No Thyromegaly Lungs: Clear to Auscultation, Normal Respiratory Effort Cardiovascular: Regular Rate, Regular Rhythm GI/Abdominal Exam: Normal Bowel Sounds, Distended- ascites, Hepatomegaly, Splenomegaly, Other (1 cm umbilical hernia reducible) Back Exam: No: Paraspinal Tenderness, Vertebral Tenderness Extremities: Pedal Edema. No: Ashley's Sign, Increased Warmth, Pallor, Redness Skin: Ecchymosis, Other (jaundice improving) Neurological: No New Focal Deficit, Other (shuffled gait with imbalance improved ), reflexes 2 which is decreased. Psy/Mental Status: Depressed. No: Normal Affect (flat), Withdrawal Symptoms reduced - Problem List & Annotations (1) GI bleed SNOMED Code(s): 52776773 Code(s): K92.2 - GASTROINTESTINAL HEMORRHAGE, UNSPECIFIED Status: Acute Priority: High Qualifiers: GI bleed type/associated pathology: gastrointestinal hemorrhage with hematemesis Qualified Code(s): K92.0 - Hematemesis (2) Anemia associated with acute blood loss SNOMED Code(s): 166477656 Code(s): D62 - ACUTE POSTHEMORRHAGIC ANEMIA Status: Acute (3) Hepatotoxicity, secondary to ETOH SNOMED Code(s): 46743213 Code(s): K70.9 - ALCOHOLIC LIVER DISEASE, UNSPECIFIED Status: Acute Priority: High (4) Hyperbilirubinemia SNOMED Code(s): 47431578 Code(s): E80.6 - OTHER DISORDERS OF BILIRUBIN METABOLISM Status: Acute (5) Acute hypokalemia SNOMED Code(s): 45959677 Code(s): E87.6 - HYPOKALEMIA Status: Acute (6) Altered mental status SNOMED Code(s): 365331881 Code(s): R41.82 - ALTERED MENTAL STATUS, UNSPECIFIED Status: Acute Qualifiers: Altered mental status type: somnolence Qualified Code(s): R40.0 - Somnolence (7) Alcoholism, chronic SNOMED Code(s): 2070452 Code(s): F10.20 - ALCOHOL DEPENDENCE, UNCOMPLICATED Status: Acute (8) Blood transfusion during current hospitalization SNOMED Code(s): 566697290, 920038668 Code(s): FAT2970 - Status: Acute - Problem List Review Problem List Initiated/Reviewed/Updated: Yes - My Orders Last 24 Hours: My Active Orders 01/16/18 09:00 Folic Acid 1 mg PO DAILY Multivitamins [Tab-A-Cady] 1 tab PO DAILY Nicotine [Habitrol] 14 mg TRDERM DAILY 01/16/18 10:00 LORazepam [Ativan] 1 mg PO Q4H Propranolol [Inderal] 40 mg PO BID 01/16/18 11:42 Telemetry Monitoring [Cardiac Monitoring] [RC] .As Directed - Assessment Assessment:: see above - Plan Plan:: wean down scheduled ativan. recommend involuntary committement for inpt detox and treatment for etoh dependency. 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 if he were to be discharged, withdrawl would set in forcing his need to drink which will lead to binging and vomiting causing repeat gi bleed for which he will likely not survive. he is no a candidate for outpt rx ativan due to cognition and hx of diversion. will be working with [facility] and [facility] to get him transfer to inpt rehab hopefully tomorrow as he is showing medical stability otherwise. I have called an ethics review committee meeting in the morning to aid me in coordination of appropriate disposition and decision making so that the best possible outcome may result from our care and interventions.
[2018-01-17] MEDS: LORazepam 0.5 MG Tab PO SCH ×3 (14:56→22:35)
[2018-01-18] MEDS: LORazepam 0.5 MG Tab PO SCH ×6 (02:20→22:28)
[2018-01-18] MEDS: Nicotine 14 MG/24 Hr Patch TRDERM SCH (08:53)
[2018-01-18] MEDS: Folic Acid 1 MG Tab PO SCH (08:53)
[2018-01-18] MEDS: Propranolol 40 MG Tab PO SCH ×2 (08:54→20:55)
[2018-01-18] MEDS: Multivitamin Tab PO SCH (08:54)
[2018-01-18] MEDS: Pantoprazole 40 MG Tab.CR PO SCH (09:02)
--- NOTE | 2018-01-18 12:09 | US ---
INDICATION: Liver, spleen, gallbladder ascites. ULTRASOUND ABDOMEN COMPLETE: Multiple ultrasonic images were obtained and revealed evidence of abdominal ascites. The liver is echogenic and difficult to penetrate, which may be on the basis of fatty infiltration and/or cirrhosis and should be correlated clinically. A hypoechoic nodular density is noted in the left lobe of the liver, measuring 9.2 x 9.2 x 9.2 mm. Etiology is indeterminate. No color flow was delineated within it. The common bile duct was normal in caliber at 4.7 mm. The gallbladder wall appears prominent, partly due to ascites, however, it did appear to be thickened to approximately 4.4 mm. A large amount of sludge is noted within the gallbladder, which changes in position slowly. The gallbladder measured 9.7 x 4.4 x 3.8 cm. The common bile duct was normal in caliber at 4.7 mm. The IVC was phasic. The right kidney measured 12.3 x 4.1 x 5.3 cm, with normal blood flow and appearance. The left kidney measured 12.9 x 5.9 x 5.2 cm, with normal blood flow, but there were some irregularities in the cortex, raising question of areas of cortical scarring. Retained lobulation could have a similar appearance, however. The left kidney was otherwise unremarkable. The spleen measured 6.9 x 15.5 x 12.7 cm, which is consistent with splenomegaly. The abdominal aorta was normal in caliber, with a maximum diameter of 2.4 cm proximally. The pancreas had a slightly prominent appearance, making it difficult to entirely exclude a process such as pancreatitis. It may, however, represent a normal appearance. CT of the pancreas may be helpful for further evaluation if pancreatitis is suspected clinically. IMPRESSION: 1. Abnormal liver with large AP diameter of 17.7 cm and echogenic appearance, suggesting at least fatty infiltration with the possibility of a process such as cirrhosis unable to be excluded. 2. Splenomegaly, which may be on the basis of #1. 3. Sludge in the gallbladder with thickened wall. Cannot exclude cholecystitis to a mild degree. 4. Pancreas appears slightly prominent for this patient, with slightly heterogeneous appearance, raising question of pancreatitis - CT may be helpful for confirmation, as felt to be clinically necessary. 5. Abdominal ascites of moderate degree. 6. Small low-echogenicity lesion in the left lobe of the liver may represent a cyst. A follow-up could be obtained for confirmation of stability. MTDD
[2018-01-18] MEDS ORDERED: Thiamine 100 MG Tab PO SCH (21:00)
[2018-01-19] MEDS: LORazepam 0.5 MG Tab PO SCH ×2 (02:36→06:09)
[2018-01-19] MEDS: Pantoprazole 40 MG Tab.CR PO SCH (06:08)
[2018-01-19] MEDS: Folic Acid 1 MG Tab PO SCH (08:36)
[2018-01-19] MEDS: Nicotine 14 MG/24 Hr Patch TRDERM SCH (08:36)
[2018-01-19] MEDS: Multivitamin Tab PO SCH (08:36)
[2018-01-19] MEDS: Propranolol 40 MG Tab PO SCH (08:36)
[2018-01-19] MEDS ORDERED: LORazepam 0.5 MG Tab PO SCH (10:00)
[2018-01-19] MEDS ORDERED: Lactulose Soln 10 GM/15 ML 30 ML UD Cup PO SCH (10:15)
--- NOTE | 2018-01-19 13:05 | PCM.DCSUM1 ---
Discharge Summary - Hospital Course Brief History: 47-year-old male admitted for acute GI bleed after binge drinking episode resulting in hemoptysis. On presentation found to have a hemoglobin of 4.4. He was transfused 4 units packed red blood cells along with 3 units of plasma. Coagulation status was a concern. Hemodynamic stability obtained - Discharge Data Discharge Date: 01/19/18 Discharge Disposition: DC/Tfer to Inpt Rehab Fac 62 Condition: Fair - Discharge Diagnosis/Problem(s) (1) GI bleed SNOMED Code(s): 42530764 ICD Code: K92.2 - GASTROINTESTINAL HEMORRHAGE, UNSPECIFIED Status: Acute Priority: High Qualifiers: GI bleed type/associated pathology: gastrointestinal hemorrhage with hematemesis Qualified Code(s): K92.0 - Hematemesis (2) Anemia associated with acute blood loss SNOMED Code(s): 430024512 ICD Code: D62 - ACUTE POSTHEMORRHAGIC ANEMIA Status: Acute (3) Hepatotoxicity, secondary to ETOH SNOMED Code(s): 18815180 ICD Code: K70.9 - ALCOHOLIC LIVER DISEASE, UNSPECIFIED Status: Acute Priority: High (4) Hyperbilirubinemia SNOMED Code(s): 66073804 ICD Code: E80.6 - OTHER DISORDERS OF BILIRUBIN METABOLISM Status: Acute (5) Acute hypokalemia SNOMED Code(s): 90050090 ICD Code: E87.6 - HYPOKALEMIA Status: Acute (6) Altered mental status SNOMED Code(s): 378991366 ICD Code: R41.82 - ALTERED MENTAL STATUS, UNSPECIFIED Status: Acute Qualifiers: Altered mental status type: somnolence Qualified Code(s): R40.0 - Somnolence (7) Alcoholism, chronic SNOMED Code(s): 9728903 ICD Code: F10.20 - ALCOHOL DEPENDENCE, UNCOMPLICATED Status: Acute (8) Blood transfusion during current hospitalization SNOMED Code(s): 863489314, 038621795 ICD Code: BBL1117 - Status: Acute (9) Cirrhosis of liver with ascites SNOMED Code(s): 35693170, 807778450 ICD Code: K74.60 - UNSPECIFIED CIRRHOSIS OF LIVER Status: Chronic Priority: High Qualifiers: Hepatic cirrhosis type: alcoholic cirrhosis Qualified Code(s): K70.31 - Alcoholic cirrhosis of liver with ascites (10) Hepatomegaly with splenomegaly, not elsewhere classified SNOMED Code(s): 37961752 ICD Code: R16.2 - HEPATOMEGALY WITH SPLENOMEGALY, NOT ELSEWHERE CLASSIFIED Status: Chronic Priority: High (11) Hyperammonemia SNOMED Code(s): 7512968 ICD Code: E72.20 - DISORDER OF UREA CYCLE METABOLISM, UNSPECIFIED Status: Acute (12) Chronic lower back pain SNOMED Code(s): 009119280 ICD Code: M54.5 - LOW BACK PAIN; G89.29 - OTHER CHRONIC PAIN Status: Chronic Qualifiers: Back pain laterality: midline Sciatica presence: without sciatica Qualified Code(s): M54.5 - Low back pain; G89.29 - Other chronic pain - Patient Summary/Data Operative Procedure(s) Performed: c scope and egd Consults: Consultations 01/18/18 07:33 Consult to [facility]itter [CONS] Routine Comment: Physician Instructions: Reason for Consult: facilitate discharge planning to inpt etoh rehab Special Instructions: siston S Recommended Follow-up Testing/Procedures: video capulography due to inability to identify source of gi bleed. Hospital Course: As mentioned above patient was admitted, transfused 4 units packed red blood cells 3 units of plasma. He underwent upper and lower GI to assess for active hemorrhaging. No site was found. There was no direct evidence of esophageal varices. No masses were noted or ulcerations. Significant hepatobiliary disease noted likely with cirrhosis secondary to chronic alcohol use. Alcohol withdrawal protocol was instituted along with scheduled Ativan dosing with tapering while inpatient to prevent withdrawals and complications that may ensue if developed. Renal function liver function and electrolyte status was monitored with replacements as necessary. There is no subjective or objective evidence of recurring bleed. Mental cognition remained clouded and judgment insight poor regarding his current situation and the underlying inciting factors. He was otherwise to be homeless as family are no longer able to care for him in their home until he received treatment. Working with state mental/health and [place] health departments and we were able to get him accepted into [facility] for inpatient chemical dependency treatment and rehabilitation. Patient did agree to this. He was transferred via ambulance. Prior to discharge I had obtained an abdominal ultrasound which did indicate hepatomegaly splenomegaly and moderate ascites. This will have to be followed up outpatient. No evidence of abdominal aortic aneurysm. No masses in the liver. Hepatitis panel was negative. Ammonia slightly elevated. He was discharged in fair condition. Family was supportive of this transfer and it is our hope that he will continue to improve. - Patient Instructions Diet: Low Sodium, No Alcoholic Beverages Activity: No Lifting Over 20 Pounds Driving: Do Not Drive Showering/Bathing: May Shower Notify Provider of: Fever, Increased Pain, Nausea and/or Vomiting - Discharge Plan Home Medications: Home Meds Folic Acid 1 mg PO DAILY tablet 01/19/18 [Rx] LORazepam [Ativan] 0.5 mg PO Q6H tablet 01/19/18 [Rx] Lactulose [Cephulac] 20 gm PO DAILY cup 01/19/18 [Rx] Multivitamins [Tab-A-Cady] 1 tab PO DAILY tablet 01/19/18 [Rx] Pantoprazole [ProTONIX] 40 mg PO DAILY@0600 tab.cr 01/19/18 [Rx] Propranolol [Inderal] 40 mg PO BID tablet 01/19/18 [Rx] Thiamine [Vitamin B-1] 100 mg PO BEDTIME tablet 01/19/18 [Rx] Patient Handouts: Blood Transfusion, Adult, Mtld-lt-[id number], Deep Vein Thrombosis Referrals: PCP,None [Primary Care Provider] - (Dr. Sarmad MD) - Discharge Summary/Plan Comment DC Time >30 min.: Yes - General Info Date of Service: 01/19/18 Subjective Update: resting comfortably in bed. agrees to transfer to [facility] for inpt chemical dependency detox and rehabilitation. he wants to get better. Denies concerns. Denies headache vision change neck shoulder chest abdominal flank pelvic lower extremity or joint pain. He's been afebrile. Denies nausea. No vomiting. Has had a loose stool. No melena or hematochezia. No umbilical pain. Tolerated ultrasound. Has a good appetite. Strength and ambulation are improved. Balance improving. He is sleepy. Functional Status: Reports: Tolerating Diet, Ambulating, Urinating - Review of Systems Systems Review Comment: see subjective please - Patient Data Vitals - Most Recent: Last Vital Signs Temp 97.9 F 01/19/18 12:00 Pulse 69 01/19/18 12:00 Resp 20 01/19/18 12:00 BP 120/65 01/19/18 12:00 Pulse Ox 99 01/19/18 12:00 Weight - Most Recent: 88.587 kg I&O - Last 24 hours: Intake & Output 01/18/18 01/19/18 01/19/18 22:59 06:59 14:59 Intake Total 320 Output Total 350 200 Balance -350 120 Imaging Impressions - Last 24 hrs: 01/18/2018 Abdominal US report indicating hepatosplenomegally with moderated abdominal ascites. no biliary obstruction. Lab Results - Last 24 hrs: Laboratory Tests 01/13/18 01/13/18 01/13/18 Range/Units 16:38 16:38 16:38 WBC 13.2 H (4.5-12.0) X10-3/uL RBC 1.58 L (4.30-5.75) x10(6)uL Hgb 4.8 L* (11.5-15.5) g/dL Hct 14.9 L* (30.0-51.3) % MCV 94.5 (80-96) fL MCH 30.6 (27.7-33.6) pg MCHC 32.4 (32.2-35.4) g/dL RDW 21.6 H (11.5-15.5) % Plt Count 143 (125-369) X10(3)uL MPV 8.5 (7.4-10.4) fL Neut % (Auto) (46-82) % Lymph % (Auto) (13-37) % [place] % (Auto) (4-12) % Eos % (Auto) (1.0-5.0) % Baso % (Auto) (0-2) % Neut # (Auto) (1.6-8.3) # Lymph # (Auto) (0.6-5.0) # [place] # (Auto) (0.0-1.3) # Eos # (Auto) (0.0-0.8) # Baso # (Auto) (0.0-0.2) # Add Manual Diff Yes Neutrophils % (Manual) 71 (46-82) % Band Neutrophils % 3 (0-6) % Lymphocytes % (Manual) 15 (13-37) % Monocytes % (Manual) 11 (4-12) % Polychromasia Moderate H Anisocytosis Many H Target Cells Few PT 19.3 H (8.7-11.1) INR 1.89 H (0.89-1.13) Sodium 141 (135-145) mmol/L Potassium 3.2 L (3.5-5.3) mmol/L Chloride 107 (100-110) mmol/L Carbon Dioxide 24 (21-32) mmol/L BUN 34 H (7-18) mg/dL Creatinine 1.4 H (0.70-1.30) mg/dL Est Cr Clr Drug Dosing TNP Estimated GFR (MDRD) 54 L (>60) BUN/Creatinine Ratio 24.3 H (9-20) Glucose 138 H (80-116) mg/dL Calcium 8.1 L (8.6-10.2) mg/dL Total Bilirubin 7.3 H (0.1-1.3) mg/dL Direct Bilirubin (0.10-0.20) mg/dL AST 81 H (5-25) IU/L ALT 30 (12-36) U/L Alkaline Phosphatase 98 (56-112) IU/L Ammonia (16-53) umol/L Total Protein 6.6 (6.0-8.0) g/dL Albumin 2.3 L (3.5-5.2) g/dL Globulin 4.3 g/dL Albumin/Globulin Ratio 0.5 Amylase (25-115) U/L Vitamin B12 (193-986) pg/mL Urine Color (YELLOW) Urine Appearance (CLEAR) Urine pH (5.0-6.5) Ur Specific [place] (1.010-1.025) Urine Protein (NEGATIVE) mg/dL Urine Glucose (UA) (NEGATIVE) mg/dL Urine Ketones (NEGATIVE) mg/dL Urine Occult Blood (NEGATIVE) Urine Nitrite (NEGATIVE) Urine Bilirubin (NEGATIVE) Urine Urobilinogen (NEGATIVE) mg/dL Ur Leukocyte Esterase (NEGATIVE) Urine RBC (0) Urine WBC (0) Ur Squamous Epith Cells (NS,R,O) Urine Bacteria (NS) Urine Opiates Screen (NEGATIVE) Ur Oxycodone Screen (NEGATIVE) Ur Propoxyphene Screen (NEGATIVE) Ur Barbituates Screen (NEGATIVE) Ur Tricyclics Screen (NEGATIVE) Ur Phencyclidine Scrn (NEGATIVE) Ur Amphetamine Screen (NEGATIVE) Urine MDMA Screen (NEGATIVE) U Benzodiazepines Scrn (NEGATIVE) U Cocaine Metab Screen (NEGATIVE) U Marijuana (THC) Screen (NEGATIVE) Ethyl Alcohol (<0.03) % Hep Bs Antigen (NR) Hep B Core Total Ab (NR) Hepatitis C Antibody (NR) Blood Type Gel Antibody Screen Crossmatch 01/13/18 01/13/18 01/13/18 Range/Units 16:38 16:38 16:38 WBC (4.5-12.0) X10-3/uL RBC (4.30-5.75) x10(6)uL Hgb (11.5-15.5) g/dL Hct (30.0-51.3) % MCV (80-96) fL MCH (27.7-33.6) pg MCHC (32.2-35.4) g/dL RDW (11.5-15.5) % Plt Count (125-369) X10(3)uL MPV (7.4-10.4) fL Neut % (Auto) (46-82) % Lymph % (Auto) (13-37) % [place] % (Auto) (4-12) % Eos % (Auto) (1.0-5.0) % Baso % (Auto) (0-2) % Neut # (Auto) (1.6-8.3) # Lymph # (Auto) (0.6-5.0) # [place] # (Auto) (0.0-1.3) # Eos # (Auto) (0.0-0.8) # Baso # (Auto) (0.0-0.2) # Add Manual Diff Neutrophils % (Manual) (46-82) % Band Neutrophils % (0-6) % Lymphocytes % (Manual) (13-37) % Monocytes % (Manual) (4-12) % Polychromasia Anisocytosis Target Cells PT (8.7-11.1) INR (0.89-1.13) Sodium (135-145) mmol/L Potassium (3.5-5.3) mmol/L Chloride (100-110) mmol/L Carbon Dioxide (21-32) mmol/L BUN (7-18) mg/dL Creatinine (0.70-1.30) mg/dL Est Cr Clr Drug Dosing Estimated GFR (MDRD) (>60) BUN/Creatinine Ratio (9-20) Glucose (80-116) mg/dL Calcium (8.6-10.2) mg/dL Total Bilirubin (0.1-1.3) mg/dL Direct Bilirubin (0.10-0.20) mg/dL AST (5-25) IU/L ALT (12-36) U/L Alkaline Phosphatase (56-112) IU/L Ammonia (16-53) umol/L Total Protein (6.0-8.0) g/dL Albumin (3.5-5.2) g/dL Globulin g/dL Albumin/Globulin Ratio Amylase 38 (25-115) U/L Vitamin B12 (193-986) pg/mL Urine Color (YELLOW) Urine Appearance (CLEAR) Urine pH (5.0-6.5) Ur Specific [place] (1.010-1.025) Urine Protein (NEGATIVE) mg/dL Urine Glucose (UA) (NEGATIVE) mg/dL Urine Ketones (NEGATIVE) mg/dL Urine Occult Blood (NEGATIVE) Urine Nitrite (NEGATIVE) Urine Bilirubin (NEGATIVE) Urine Urobilinogen (NEGATIVE) mg/dL Ur Leukocyte Esterase (NEGATIVE) Urine RBC (0) Urine WBC (0) Ur Squamous Epith Cells (NS,R,O) Urine Bacteria (NS) Urine Opiates Screen (NEGATIVE) Ur Oxycodone Screen (NEGATIVE) Ur Propoxyphene Screen (NEGATIVE) Ur Barbituates Screen (NEGATIVE) Ur Tricyclics Screen (NEGATIVE) Ur Phencyclidine Scrn (NEGATIVE) Ur Amphetamine Screen (NEGATIVE) Urine MDMA Screen (NEGATIVE) U Benzodiazepines Scrn (NEGATIVE) U Cocaine Metab Screen (NEGATIVE) U Marijuana (THC) Screen (NEGATIVE) Ethyl Alcohol < 0.03 (<0.03) % Hep Bs Antigen (NR) Hep B Core Total Ab (NR) Hepatitis C Antibody (NR) Blood Type O POSITIVE Gel Antibody Screen Negative Crossmatch See Detail 01/13/18 01/13/18 01/14/18 Range/Units 21:16 21:16 06:35 WBC 5.9 (4.5-12.0) X10-3/uL RBC 2.41 L (4.30-5.75) x10(6)uL Hgb 7.5 L (11.5-15.5) g/dL Hct 22.1 L (30.0-51.3) % MCV 91.9 (80-96) fL MCH 31.0 (27.7-33.6) pg MCHC 33.7 (32.2-35.4) g/dL RDW 19.0 H (11.5-15.5) % Plt Count 67 L (125-369) X10(3)uL MPV 8.3 (7.4-10.4) fL Neut % (Auto) 57.9 (46-82) % Lymph % (Auto) 26.5 (13-37) % [place] % (Auto) 10.1 (4-12) % Eos % (Auto) 4 (1.0-5.0) % Baso % (Auto) 2 (0-2) % Neut # (Auto) 3.4 (1.6-8.3) # Lymph # (Auto) 1.6 (0.6-5.0) # [place] # (Auto) 0.6 (0.0-1.3) # Eos # (Auto) 0.2 (0.0-0.8) # Baso # (Auto) 0.1 (0.0-0.2) # Add Manual Diff Neutrophils % (Manual) (46-82) % Band Neutrophils % (0-6) % Lymphocytes % (Manual) (13-37) % Monocytes % (Manual) (4-12) % Polychromasia Anisocytosis Target Cells PT (8.7-11.1) INR (0.89-1.13) Sodium (135-145) mmol/L Potassium (3.5-5.3) mmol/L Chloride (100-110) mmol/L Carbon Dioxide (21-32) mmol/L BUN (7-18) mg/dL Creatinine (0.70-1.30) mg/dL Est Cr Clr Drug Dosing Estimated GFR (MDRD) (>60) BUN/Creatinine Ratio (9-20) Glucose (80-116) mg/dL Calcium (8.6-10.2) mg/dL Total Bilirubin (0.1-1.3) mg/dL Direct Bilirubin (0.10-0.20) mg/dL AST (5-25) IU/L ALT (12-36) U/L Alkaline Phosphatase (56-112) IU/L Ammonia (16-53) umol/L Total Protein (6.0-8.0) g/dL Albumin (3.5-5.2) g/dL Globulin g/dL Albumin/Globulin Ratio Amylase (25-115) U/L Vitamin B12 (193-986) pg/mL Urine Color [place] (YELLOW) Urine Appearance Clear (CLEAR) Urine pH 8.0 H (5.0-6.5) Ur Specific [place] 1.015 (1.010-1.025) Urine Protein Negative (NEGATIVE) mg/dL Urine Glucose (UA) Normal (NEGATIVE) mg/dL Urine Ketones Negative (NEGATIVE) mg/dL Urine Occult Blood Negative (NEGATIVE) Urine Nitrite Negative (NEGATIVE) Urine Bilirubin Small H (NEGATIVE) Urine Urobilinogen >=12 H (NEGATIVE) mg/dL Ur Leukocyte Esterase Negative (NEGATIVE) Urine RBC 0-5 (0) Urine WBC 0-5 (0) Ur Squamous Epith Cells Few H (NS,R,O) Urine Bacteria Few H (NS) Urine Opiates Screen Negative (NEGATIVE) Ur Oxycodone Screen Negative (NEGATIVE) Ur Propoxyphene Screen Negative (NEGATIVE) Ur Barbituates Screen Negative (NEGATIVE) Ur Tricyclics Screen Positive H (NEGATIVE) Ur Phencyclidine Scrn Negative (NEGATIVE) Ur Amphetamine Screen Negative (NEGATIVE) Urine MDMA Screen Negative (NEGATIVE) U Benzodiazepines Scrn Negative (NEGATIVE) U Cocaine Metab Screen Negative (NEGATIVE) U Marijuana (THC) Screen Positive H (NEGATIVE) Ethyl Alcohol (<0.03) % Hep Bs Antigen (NR) Hep B Core Total Ab (NR) Hepatitis C Antibody (NR) Blood Type Gel Antibody Screen Crossmatch 01/14/18 01/14/18 01/14/18 Range/Units 06:35 06:35 20:30 WBC 7.0 (4.5-12.0) X10-3/uL RBC 2.89 L (4.30-5.75) x10(6)uL Hgb 8.7 L (11.5-15.5) g/dL Hct 26.4 L (30.0-51.3) % MCV 91.6 (80-96) fL MCH 30.1 (27.7-33.6) pg MCHC 32.8 (32.2-35.4) g/dL RDW 18.9 H (11.5-15.5) % Plt Count 93 L (125-369) X10(3)uL MPV 8.4 (7.4-10.4) fL Neut % (Auto) 58.9 (46-82) % Lymph % (Auto) 23.6 (13-37) % [place] % (Auto) 11.8 (4-12) % Eos % (Auto) 4 (1.0-5.0) % Baso % (Auto) 2 (0-2) % Neut # (Auto) 4.1 (1.6-8.3) # Lymph # (Auto) 1.7 (0.6-5.0) # [place] # (Auto) 0.8 (0.0-1.3) # Eos # (Auto) 0.3 (0.0-0.8) # Baso # (Auto) 0.1 (0.0-0.2) # Add Manual Diff Neutrophils % (Manual) (46-82) % Band Neutrophils % (0-6) % Lymphocytes % (Manual) (13-37) % Monocytes % (Manual) (4-12) % Polychromasia Anisocytosis Target Cells PT 19.4 H (8.7-11.1) INR 1.90 H (0.89-1.13) Sodium 142 (135-145) mmol/L Potassium 3.2 L (3.5-5.3) mmol/L Chloride 110 (100-110) mmol/L Carbon Dioxide 21 (21-32) mmol/L BUN 23 H D (7-18) mg/dL Creatinine 1.0 (0.70-1.30) mg/dL Est Cr Clr Drug Dosing 87.40 Estimated GFR (MDRD) > 60 (>60) BUN/Creatinine Ratio 23.0 H (9-20) Glucose 97 (80-116) mg/dL Calcium 7.8 L (8.6-10.2) mg/dL Total Bilirubin 6.8 H (0.1-1.3) mg/dL Direct Bilirubin (0.10-0.20) mg/dL AST 65 H D (5-25) IU/L ALT 25 D (12-36) U/L Alkaline Phosphatase 83 (56-112) IU/L Ammonia (16-53) umol/L Total Protein 5.8 L (6.0-8.0) g/dL Albumin 2.1 L (3.5-5.2) g/dL Globulin 3.7 g/dL Albumin/Globulin Ratio 0.6 Amylase (25-115) U/L Vitamin B12 (193-986) pg/mL Urine Color (YELLOW) Urine Appearance (CLEAR) Urine pH (5.0-6.5) Ur Specific [place] (1.010-1.025) Urine Protein (NEGATIVE) mg/dL Urine Glucose (UA) (NEGATIVE) mg/dL Urine Ketones (NEGATIVE) mg/dL Urine Occult Blood (NEGATIVE) Urine Nitrite (NEGATIVE) Urine Bilirubin (NEGATIVE) Urine Urobilinogen (NEGATIVE) mg/dL Ur Leukocyte Esterase (NEGATIVE) Urine RBC (0) Urine WBC (0) Ur Squamous Epith Cells (NS,R,O) Urine Bacteria (NS) Urine Opiates Screen (NEGATIVE) Ur Oxycodone Screen (NEGATIVE) Ur Propoxyphene Screen (NEGATIVE) Ur Barbituates Screen (NEGATIVE) Ur Tricyclics Screen (NEGATIVE) Ur Phencyclidine Scrn (NEGATIVE) Ur Amphetamine Screen (NEGATIVE) Urine MDMA Screen (NEGATIVE) U Benzodiazepines Scrn (NEGATIVE) U Cocaine Metab Screen (NEGATIVE) U Marijuana (THC) Screen (NEGATIVE) Ethyl Alcohol (<0.03) % Hep Bs Antigen (NR) Hep B Core Total Ab (NR) Hepatitis C Antibody (NR) Blood Type Gel Antibody Screen Crossmatch 01/14/18 01/15/18 01/15/18 Range/Units 20:30 06:10 06:10 WBC (4.5-12.0) X10-3/uL RBC (4.30-5.75) x10(6)uL Hgb 7.3 L (11.5-15.5) g/dL Hct 22.3 L (30.0-51.3) % MCV (80-96) fL MCH (27.7-33.6) pg MCHC (32.2-35.4) g/dL RDW (11.5-15.5) % Plt Count (125-369) X10(3)uL MPV (7.4-10.4) fL Neut % (Auto) (46-82) % Lymph % (Auto) (13-37) % [place] % (Auto) (4-12) % Eos % (Auto) (1.0-5.0) % Baso % (Auto) (0-2) % Neut # (Auto) (1.6-8.3) # Lymph # (Auto) (0.6-5.0) # [place] # (Auto) (0.0-1.3) # Eos # (Auto) (0.0-0.8) # Baso # (Auto) (0.0-0.2) # Add Manual Diff Neutrophils % (Manual) (46-82) % Band Neutrophils % (0-6) % Lymphocytes % (Manual) (13-37) % Monocytes % (Manual) (4-12) % Polychromasia Anisocytosis Target Cells PT 15.6 H 16.3 H (8.7-11.1) INR 1.53 H 1.59 H (0.89-1.13) Sodium (135-145) mmol/L Potassium (3.5-5.3) mmol/L Chloride (100-110) mmol/L Carbon Dioxide (21-32) mmol/L BUN (7-18) mg/dL Creatinine (0.70-1.30) mg/dL Est Cr Clr Drug Dosing Estimated GFR (MDRD) (>60) BUN/Creatinine Ratio (9-20) Glucose (80-116) mg/dL Calcium (8.6-10.2) mg/dL Total Bilirubin (0.1-1.3) mg/dL Direct Bilirubin (0.10-0.20) mg/dL AST (5-25) IU/L ALT (12-36) U/L Alkaline Phosphatase (56-112) IU/L Ammonia (16-53) umol/L Total Protein (6.0-8.0) g/dL Albumin (3.5-5.2) g/dL Globulin g/dL Albumin/Globulin Ratio Amylase (25-115) U/L Vitamin B12 (193-986) pg/mL Urine Color (YELLOW) Urine Appearance (CLEAR) Urine pH (5.0-6.5) Ur Specific [place] (1.010-1.025) Urine Protein (NEGATIVE) mg/dL Urine Glucose (UA) (NEGATIVE) mg/dL Urine Ketones (NEGATIVE) mg/dL Urine Occult Blood (NEGATIVE) Urine Nitrite (NEGATIVE) Urine Bilirubin (NEGATIVE) Urine Urobilinogen (NEGATIVE) mg/dL Ur Leukocyte Esterase (NEGATIVE) Urine RBC (0) Urine WBC (0) Ur Squamous Epith Cells (NS,R,O) Urine Bacteria (NS) Urine Opiates Screen (NEGATIVE) Ur Oxycodone Screen (NEGATIVE) Ur Propoxyphene Screen (NEGATIVE) Ur Barbituates Screen (NEGATIVE) Ur Tricyclics Screen (NEGATIVE) Ur Phencyclidine Scrn (NEGATIVE) Ur Amphetamine Screen (NEGATIVE) Urine MDMA Screen (NEGATIVE) U Benzodiazepines Scrn (NEGATIVE) U Cocaine Metab Screen (NEGATIVE) U Marijuana (THC) Screen (NEGATIVE) Ethyl Alcohol (<0.03) % Hep Bs Antigen (NR) Hep B Core Total Ab (NR) Hepatitis C Antibody (NR) Blood Type Gel Antibody Screen Crossmatch 01/15/18 01/15/18 01/16/18 Range/Units 16:35 16:35 06:15 WBC 6.2 (4.5-12.0) X10-3/uL RBC 2.64 L (4.30-5.75) x10(6)uL Hgb 7.9 L (11.5-15.5) g/dL Hct 24.0 L (30.0-51.3) % MCV 91.0 (80-96) fL MCH 30.0 (27.7-33.6) pg MCHC 33.0 (32.2-35.4) g/dL RDW 19.4 H (11.5-15.5) % Plt Count 78 L (125-369) X10(3)uL MPV (7.4-10.4) fL Neut % (Auto) (46-82) % Lymph % (Auto) (13-37) % [place] % (Auto) (4-12) % Eos % (Auto) (1.0-5.0) % Baso % (Auto) (0-2) % Neut # (Auto) (1.6-8.3) # Lymph # (Auto) (0.6-5.0) # [place] # (Auto) (0.0-1.3) # Eos # (Auto) (0.0-0.8) # Baso # (Auto) (0.0-0.2) # Add Manual Diff Neutrophils % (Manual) (46-82) % Band Neutrophils % (0-6) % Lymphocytes % (Manual) (13-37) % Monocytes % (Manual) (4-12) % Polychromasia Anisocytosis Target Cells PT (8.7-11.1) INR (0.89-1.13) Sodium (135-145) mmol/L Potassium (3.5-5.3) mmol/L Chloride (100-110) mmol/L Carbon Dioxide (21-32) mmol/L BUN (7-18) mg/dL Creatinine (0.70-1.30) mg/dL Est Cr Clr Drug Dosing Estimated GFR (MDRD) (>60) BUN/Creatinine Ratio (9-20) Glucose (80-116) mg/dL Calcium (8.6-10.2) mg/dL Total Bilirubin (0.1-1.3) mg/dL Direct Bilirubin 3.59 H (0.10-0.20) mg/dL AST (5-25) IU/L ALT (12-36) U/L Alkaline Phosphatase (56-112) IU/L Ammonia 109 H (16-53) umol/L Total Protein (6.0-8.0) g/dL Albumin (3.5-5.2) g/dL Globulin g/dL Albumin/Globulin Ratio Amylase (25-115) U/L Vitamin B12 (193-986) pg/mL Urine Color (YELLOW) Urine Appearance (CLEAR) Urine pH (5.0-6.5) Ur Specific [place] (1.010-1.025) Urine Protein (NEGATIVE) mg/dL Urine Glucose (UA) (NEGATIVE) mg/dL Urine Ketones (NEGATIVE) mg/dL Urine Occult Blood (NEGATIVE) Urine Nitrite (NEGATIVE) Urine Bilirubin (NEGATIVE) Urine Urobilinogen (NEGATIVE) mg/dL Ur Leukocyte Esterase (NEGATIVE) Urine RBC (0) Urine WBC (0) Ur Squamous Epith Cells (NS,R,O) Urine Bacteria (NS) Urine Opiates Screen (NEGATIVE) Ur Oxycodone Screen (NEGATIVE) Ur Propoxyphene Screen (NEGATIVE) Ur Barbituates Screen (NEGATIVE) Ur Tricyclics Screen (NEGATIVE) Ur Phencyclidine Scrn (NEGATIVE) Ur Amphetamine Screen (NEGATIVE) Urine MDMA Screen (NEGATIVE) U Benzodiazepines Scrn (NEGATIVE) U Cocaine Metab Screen (NEGATIVE) U Marijuana (THC) Screen (NEGATIVE) Ethyl Alcohol (<0.03) % Hep Bs Antigen (NR) Hep B Core Total Ab (NR) Hepatitis C Antibody (NR) Blood Type Gel Antibody Screen Crossmatch 0401/16/18 01/16/18 Range/Units 06:15 06:15 06:15 WBC (4.5-12.0) X10-3/uL RBC (4.30-5.75) x10(6)uL Hgb (11.5-15.5) g/dL Hct (30.0-51.3) % MCV (80-96) fL MCH (27.7-33.6) pg MCHC (32.2-35.4) g/dL RDW (11.5-15.5) % Plt Count (125-369) X10(3)uL MPV (7.4-10.4) fL Neut % (Auto) (46-82) % Lymph % (Auto) (13-37) % Piute % (Auto) (4-12) % Eos % (Auto) (1.0-5.0) % Baso % (Auto) (0-2) % Neut # (Auto) (1.6-8.3) # Lymph # (Auto) (0.6-5.0) # Piute # (Auto) (0.0-1.3) # Eos # (Auto) (0.0-0.8) # Baso # (Auto) (0.0-0.2) # Add Manual Diff Neutrophils % (Manual) (46-82) % Band Neutrophils % (0-6) % Lymphocytes % (Manual) (13-37) % Monocytes % (Manual) (4-12) % Polychromasia Anisocytosis Target Cells PT 16.0 H (8.7-11.1) INR 1.57 H (0.89-1.13) Sodium 136 (135-145) mmol/L Potassium 2.9 L (3.5-5.3) mmol/L Chloride 105 D (100-110) mmol/L Carbon Dioxide 23 (21-32) mmol/L BUN 9 D (7-18) mg/dL Creatinine 0.9 (0.70-1.30) mg/dL Est Cr Clr Drug Dosing 97.11 Estimated GFR (MDRD) > 60 (>60) BUN/Creatinine Ratio 10.0 (9-20) Glucose 92 (80-116) mg/dL Calcium 7.8 L (8.6-10.2) mg/dL Total Bilirubin 5.9 H (0.1-1.3) mg/dL Direct Bilirubin (0.10-0.20) mg/dL AST 51 H D (5-25) IU/L ALT 24 (12-36) U/L Alkaline Phosphatase 110 (56-112) IU/L Ammonia (16-53) umol/L Total Protein 5.9 L (6.0-8.0) g/dL Albumin 2.2 L (3.5-5.2) g/dL Globulin 3.7 g/dL Albumin/Globulin Ratio 0.6 Amylase (25-115) U/L Vitamin B12 (193-986) pg/mL Urine Color (YELLOW) Urine Appearance (CLEAR) Urine pH (5.0-6.5) Ur Specific [place] (1.010-1.025) Urine Protein (NEGATIVE) mg/dL Urine Glucose (UA) (NEGATIVE) mg/dL Urine Ketones (NEGATIVE) mg/dL Urine Occult Blood (NEGATIVE) Urine Nitrite (NEGATIVE) Urine Bilirubin (NEGATIVE) Urine Urobilinogen (NEGATIVE) mg/dL Ur Leukocyte Esterase (NEGATIVE) Urine RBC (0) Urine WBC (0) Ur Squamous Epith Cells (NS,R,O) Urine Bacteria (NS) Urine Opiates Screen (NEGATIVE) Ur Oxycodone Screen (NEGATIVE) Ur Propoxyphene Screen (NEGATIVE) Ur Barbituates Screen (NEGATIVE) Ur Tricyclics Screen (NEGATIVE) Ur Phencyclidine Scrn (NEGATIVE) Ur Amphetamine Screen (NEGATIVE) Urine MDMA Screen (NEGATIVE) U Benzodiazepines Scrn (NEGATIVE) U Cocaine Metab Screen (NEGATIVE) U Marijuana (THC) Screen (NEGATIVE) Ethyl Alcohol (<0.03) % Hep Bs Antigen (NR) Hep B Core Total Ab Non reactive (NR) Hepatitis C Antibody Non reactive (NR) Blood Type Gel Antibody Screen Crossmatch 01/16/18 01/16/18 01/18/18 Range/Units 06:15 16:02 06:48 WBC 7.6 (4.5-12.0) X10-3/uL RBC 2.70 L (4.30-5.75) x10(6)uL Hgb 8.2 L (11.5-15.5) g/dL Hct 24.6 L (30.0-51.3) % MCV 91.1 (80-96) fL MCH 30.4 (27.7-33.6) pg MCHC 33.3 (32.2-35.4) g/dL RDW 19.6 H (11.5-15.5) % Plt Count 100 L (125-369) X10(3)uL MPV 9.2 (7.4-10.4) fL Neut % (Auto) 58.8 (46-82) % Lymph % (Auto) 22.3 (13-37) % Piute % (Auto) 13.5 H (4-12) % Eos % (Auto) 4 (1.0-5.0) % Baso % (Auto) 1 (0-2) % Neut # (Auto) 4.5 (1.6-8.3) # Lymph # (Auto) 1.7 (0.6-5.0) # Piute # (Auto) 1.0 (0.0-1.3) # Eos # (Auto) 0.3 (0.0-0.8) # Baso # (Auto) 0.1 (0.0-0.2) # Add Manual Diff Neutrophils % (Manual) (46-82) % Band Neutrophils % (0-6) % Lymphocytes % (Manual) (13-37) % Monocytes % (Manual) (4-12) % Polychromasia Anisocytosis Target Cells PT (8.7-11.1) INR (0.89-1.13) Sodium 136 (135-145) mmol/L Potassium 3.5 (3.5-5.3) mmol/L Chloride 104 (100-110) mmol/L Carbon Dioxide 24 (21-32) mmol/L BUN 10 (7-18) mg/dL Creatinine 1.0 (0.70-1.30) mg/dL Est Cr Clr Drug Dosing 87.40 Estimated GFR (MDRD) > 60 (>60) BUN/Creatinine Ratio 10.0 (9-20) Glucose 100 (80-116) mg/dL Calcium 7.9 L (8.6-10.2) mg/dL Total Bilirubin 5.5 H (0.1-1.3) mg/dL Direct Bilirubin (0.10-0.20) mg/dL AST 52 H (5-25) IU/L ALT 26 (12-36) U/L Alkaline Phosphatase 121 H (56-112) IU/L Ammonia (16-53) umol/L Total Protein 6.5 (6.0-8.0) g/dL Albumin 2.3 L (3.5-5.2) g/dL Globulin 4.2 g/dL Albumin/Globulin Ratio 0.6 Amylase (25-115) U/L Vitamin B12 (193-986) pg/mL Urine Color (YELLOW) Urine Appearance (CLEAR) Urine pH (5.0-6.5) Ur Specific [place] (1.010-1.025) Urine Protein (NEGATIVE) mg/dL Urine Glucose (UA) (NEGATIVE) mg/dL Urine Ketones (NEGATIVE) mg/dL Urine Occult Blood (NEGATIVE) Urine Nitrite (NEGATIVE) Urine Bilirubin (NEGATIVE) Urine Urobilinogen (NEGATIVE) mg/dL Ur Leukocyte Esterase (NEGATIVE) Urine RBC (0) Urine WBC (0) Ur Squamous Epith Cells (NS,R,O) Urine Bacteria (NS) Urine Opiates Screen (NEGATIVE) Ur Oxycodone Screen (NEGATIVE) Ur Propoxyphene Screen (NEGATIVE) Ur Barbituates Screen (NEGATIVE) Ur Tricyclics Screen (NEGATIVE) Ur Phencyclidine Scrn (NEGATIVE) Ur Amphetamine Screen (NEGATIVE) Urine MDMA Screen (NEGATIVE) U Benzodiazepines Scrn (NEGATIVE) U Cocaine Metab Screen (NEGATIVE) U Marijuana (THC) Screen (NEGATIVE) Ethyl Alcohol (<0.03) % Hep Bs Antigen Non reactive (NR) Hep B Core Total Ab (NR) Hepatitis C Antibody (NR) Blood Type Gel Antibody Screen Crossmatch 01/18/18 01/19/18 01/19/18 Range/Units 06:48 11:40 11:40 WBC 6.7 (4.5-12.0) X10-3/uL RBC 2.58 L (4.30-5.75) x10(6)uL Hgb 7.8 L (11.5-15.5) g/dL Hct 23.8 L (30.0-51.3) % MCV 92.3 (80-96) fL MCH 30.3 (27.7-33.6) pg MCHC 32.8 (32.2-35.4) g/dL RDW 19.5 H (11.5-15.5) % Plt Count 107 L (125-369) X10(3)uL MPV (7.4-10.4) fL Neut % (Auto) (46-82) % Lymph % (Auto) (13-37) % Pi[place] % (Auto) (4-12) % Eos % (Auto) (1.0-5.0) % Baso % (Auto) (0-2) % Neut # (Auto) (1.6-8.3) # Lymph # (Auto) (0.6-5.0) # Piute # (Auto) (0.0-1.3) # Eos # (Auto) (0.0-0.8) # Baso # (Auto) (0.0-0.2) # Add Manual Diff Neutrophils % (Manual) (46-82) % Band Neutrophils % (0-6) % Lymphocytes % (Manual) (13-37) % Monocytes % (Manual) (4-12) % Polychromasia Anisocytosis Target Cells PT (8.7-11.1) INR (0.89-1.13) Sodium 136 138 (135-145) mmol/L Potassium 3.6 3.8 (3.5-5.3) mmol/L Chloride 106 105 (100-110) mmol/L Carbon Dioxide 24 25 (21-32) mmol/L BUN 10 9 (7-18) mg/dL Creatinine 0.9 1.0 (0.70-1.30) mg/dL Est Cr Clr Drug Dosing 97.11 87.40 Estimated GFR (MDRD) > 60 > 60 (>60) BUN/Creatinine Ratio 11.1 9.0 (9-20) Glucose 97 119 H (80-116) mg/dL Calcium 8.1 L 8.0 L (8.6-10.2) mg/dL Total Bilirubin 4.2 H 4.1 H (0.1-1.3) mg/dL Direct Bilirubin (0.10-0.20) mg/dL AST 49 H 52 H (5-25) IU/L ALT 24 26 (12-36) U/L Alkaline Phosphatase 157 H 154 H (56-112) IU/L Ammonia (16-53) umol/L Total Protein 6.4 6.4 (6.0-8.0) g/dL Albumin 2.2 L 2.3 L (3.5-5.2) g/dL Globulin 4.2 4.1 g/dL Albumin/Globulin Ratio 0.5 0.6 Amylase (25-115) U/L Vitamin B12 (193-986) pg/mL Urine Color (YELLOW) Urine Appearance (CLEAR) Urine pH (5.0-6.5) Ur Specific [place] (1.010-1.025) Urine Protein (NEGATIVE) mg/dL Urine Glucose (UA) (NEGATIVE) mg/dL Urine Ketones (NEGATIVE) mg/dL Urine Occult Blood (NEGATIVE) Urine Nitrite (NEGATIVE) Urine Bilirubin (NEGATIVE) Urine Urobilinogen (NEGATIVE) mg/dL Ur Leukocyte Esterase (NEGATIVE) Urine RBC (0) Urine WBC (0) Ur Squamous Epith Cells (NS,R,O) Urine Bacteria (NS) Urine Opiates Screen (NEGATIVE) Ur Oxycodone Screen (NEGATIVE) Ur Propoxyphene Screen (NEGATIVE) Ur Barbituates Screen (NEGATIVE) Ur Tricyclics Screen (NEGATIVE) Ur Phencyclidine Scrn (NEGATIVE) Ur Amphetamine Screen (NEGATIVE) Urine MDMA Screen (NEGATIVE) U Benzodiazepines Scrn (NEGATIVE) U Cocaine Metab Screen (NEGATIVE) U Marijuana (THC) Screen (NEGATIVE) Ethyl Alcohol (<0.03) % Hep Bs Antigen (NR) Hep B Core Total Ab (NR) Hepatitis C Antibody (NR) Blood Type Gel Antibody Screen Crossmatch 01/19/18 Range/Units 11:40 WBC (4.5-12.0) X10-3/uL RBC (4.30-5.75) x10(6)uL Hgb (11.5-15.5) g/dL Hct (30.0-51.3) % MCV (80-96) fL MCH (27.7-33.6) pg MCHC (32.2-35.4) g/dL RDW (11.5-15.5) % Plt Count (125-369) X10(3)uL MPV (7.4-10.4) fL Neut % (Auto) (46-82) % Lymph % (Auto) (13-37) % [place] % (Auto) (4-12) % Eos % (Auto) (1.0-5.0) % Baso % (Auto) (0-2) % Neut # (Auto) (1.6-8.3) # Lymph # (Auto) (0.6-5.0) # Pi[place] # (Auto) (0.0-1.3) # Eos # (Auto) (0.0-0.8) # Baso # (Auto) (0.0-0.2) # Add Manual Diff Neutrophils % (Manual) (46-82) % Band Neutrophils % (0-6) % Lymphocytes % (Manual) (13-37) % Monocytes % (Manual) (4-12) % Polychromasia Anisocytosis Target Cells PT (8.7-11.1) INR (0.89-1.13) Sodium (135-145) mmol/L Potassium (3.5-5.3) mmol/L Chloride (100-110) mmol/L Carbon Dioxide (21-32) mmol/L BUN (7-18) mg/dL Creatinine (0.70-1.30) mg/dL Est Cr Clr Drug Dosing Estimated GFR (MDRD) (>60) BUN/Creatinine Ratio (9-20) Glucose (80-116) mg/dL Calcium (8.6-10.2) mg/dL Total Bilirubin (0.1-1.3) mg/dL Direct Bilirubin (0.10-0.20) mg/dL AST (5-25) IU/L ALT (12-36) U/L Alkaline Phosphatase (56-112) IU/L Ammonia (16-53) umol/L Total Protein (6.0-8.0) g/dL Albumin (3.5-5.2) g/dL Globulin g/dL Albumin/Globulin Ratio Amylase (25-115) U/L Vitamin B12 1573 H (193-986) pg/mL Urine Color (YELLOW) Urine Appearance (CLEAR) Urine pH (5.0-6.5) Ur Specific [place] (1.010-1.025) Urine Protein (NEGATIVE) mg/dL Urine Glucose (UA) (NEGATIVE) mg/dL Urine Ketones (NEGATIVE) mg/dL Urine Occult Blood (NEGATIVE) Urine Nitrite (NEGATIVE) Urine Bilirubin (NEGATIVE) Urine Urobilinogen (NEGATIVE) mg/dL Ur Leukocyte Esterase (NEGATIVE) Urine RBC (0) Urine WBC (0) Ur Squamous Epith Cells (NS,R,O) Urine Bacteria (NS) Urine Opiates Screen (NEGATIVE) Ur Oxycodone Screen (NEGATIVE) Ur Propoxyphene Screen (NEGATIVE) Ur Barbituates Screen (NEGATIVE) Ur Tricyclics Screen (NEGATIVE) Ur Phencyclidine Scrn (NEGATIVE) Ur Amphetamine Screen (NEGATIVE) Urine MDMA Screen (NEGATIVE) U Benzodiazepines Scrn (NEGATIVE) U Cocaine Metab Screen (NEGATIVE) U Marijuana (THC) Screen (NEGATIVE) Ethyl Alcohol (<0.03) % Hep Bs Antigen (NR) Hep B Core Total Ab (NR) Hepatitis C Antibody (NR) Blood Type Gel Antibody Screen Crossmatch MEJIA Results - Last 24 hrs: Microbiology 01/19/18 09:50 Stool / Feces Stool Occult Blood (MEJIA) - Final NEGATIVE Med Orders - Current: Current Medications Folic Acid (Folic Acid) 1 mg PO DAILY [facility] Last Admin: 01/19/18 08:36 Dose: 1 mg Lactulose (Cephulac) 20 gm PO DAILY [facility] Last Admin: 01/19/18 11:13 Dose: 20 gm Lorazepam (Ativan) 0 mg PO ASDIRECTED KERI; Protocol Lorazepam (Ativan) 0.5 mg PO Q6H [facility] Last Admin: 01/19/18 11:13 Dose: 0.5 mg Multivitamins/Minerals/Vitamin C (Tab-A-Cady) 1 tab PO DAILY [facility] Last Admin: 01/19/18 08:36 Dose: 1 tab Nicotine (Habitrol) 14 mg TRDERM DAILY [facility] Last Admin: 01/19/18 08:36 Dose: 14 mg Pantoprazole Sodium (Protonix) 40 mg PO DAILY@0600 [facility] Last Admin: 01/19/18 06:08 Dose: 40 mg Propranolol HCl (Inderal) 40 mg PO BID [facility] Last Admin: 01/19/18 08:36 Dose: 40 mg Sodium Chloride (Saline Flush) 10 ml FLUSH ASDIRECTED PRN PRN Reason: Keep Vein Open Last Admin: 01/13/18 19:10 Dose: 10 ml Thiamine HCl (Vitamin B-1) 100 mg PO BEDTIME [facility] Last Admin: 01/18/18 20:55 Dose: 100 mg Discontinued Medications Fentanyl (Sublimaze) 100 mcg IV .STK-MED ONE Stop: 01/15/18 08:01 Pantoprazole Sodium 80 mg/ (Sodium Chloride) 100 mls @ 200 mls/hr IV .BOLUS ONE Stop: 01/13/18 16:59 Last Admin: 01/13/18 17:00 Dose: 200 mls/hr Sodium Chloride (Normal Saline) 250 mls @ 100 mls/hr IV ASDIRECTED [facility] Last Admin: 01/13/18 22:34 Dose: 100 mls/hr Multivitamins/Minerals 10 ml/Thiamine HCl 100 mg/ Sodium Chloride 1,011 mls @ 999 mls/hr IV ONETIME ONE Stop: 01/13/18 18:15 Last Admin: 01/13/18 18:00 Dose: 999 mls/hr Sodium Chloride (Normal Saline) 1,000 mls @ 999 mls/hr IV ASDIRECTED KERI Stop: 01/14/18 18:31 Last Admin: 01/13/18 19:31 Dose: 999 mls/hr Sodium Chloride (Normal Saline) 1,000 mls @ 30 mls/hr IV ASDIRECTED [facility] Stop: 01/18/18 02:35 Last Admin: 01/14/18 03:24 Dose: 30 mls/hr Sodium Chloride (Normal Saline) 1,000 mls @ 100 mls/hr IV ASDIRECTED [facility] Stop: 01/18/18 02:35 Last Admin: 01/15/18 08:49 Dose: 100 mls/hr Sodium Chloride (Normal Saline) 250 mls @ 100 mls/hr IV ASDIRECTED [facility] Potassium Chloride 20 meq/ (Premix) 100 mls @ 50 mls/hr IV Q2H [facility] Stop: 01/16/18 13:59 Last Admin: 01/16/18 15:29 Dose: 50 mls/hr Sodium Chloride (Normal Saline) 1,000 mls @ 100 mls/hr IV ASDIRECTED [facility] Last Admin: 01/16/18 13:46 Dose: 100 mls/hr Ketamine HCl (Ketalar) 50 mg IV .STK-MED ONE Stop: 01/15/18 08:01 Lidocaine HCl (Xylocaine 2%) 80 mg IVPUSH .STK-MED ONE Stop: 01/15/18 08:01 Lidocaine HCl (Xylocaine-Mpf 4%) 5 ml INJECT .STK-MED ONE Stop: 01/15/18 08:01 Lorazepam (Ativan) 1 mg PO Q4H [facility] Last Admin: 01/17/18 14:08 Dose: 1 mg Lorazepam (Ativan) 0.5 mg PO Q4H [facility] Last Admin: 01/19/18 06:09 Dose: 0.5 mg Midazolam HCl (Versed 1 Mg/Ml) 2 mg IV .STK-MED ONE Stop: 01/15/18 08:01 Phytonadione (Aquamephyton) 10 mg SUBCUT ONETIME ONE Stop: 01/13/18 17:29 Last Admin: 01/13/18 17:33 Dose: 10 mg Polyethylene Glycol/Electrolytes (Golytely) 4,000 ml PO ONETIME ONE Stop: 01/14/18 16:01 Last Admin: 01/14/18 16:33 Dose: 4,000 ml Propofol (Diprivan 20 Ml) 300 mg IV .STK-MED ONE Stop: 01/15/18 08:01 Simethicone (Infants' Gas Relief) 40 mg .XX .STK-MED ONE Stop: 01/15/18 08:17 Last Admin: 01/15/18 08:16 Dose: 40 mg - Exam General: Reports: Oriented, Cooperative, Lethargic HEENT: Reports: Pupils Equal, Pupils Reactive, Scleral Icterus Neck: Reports: Supple, No JVD. Denies: Thyromegaly Lungs: Reports: Clear to Auscultation, Normal Respiratory Effort Cardiovascular: Reports: Regular Rate, Regular Rhythm GI/Abdominal Exam: Normal Bowel Sounds, Soft, Distended, Hernia (1cm umbilical reducible.). No: Rigid Back Exam: Reports: Normal Inspection. Denies: Vertebral Tenderness Extremities: Normal Capillary Refill, Pedal Edema (1+ bilat up to shins. ), Mottled. No: Ashley's Sign, Leg Pain Skin: Reports: Ecchymosis Neurological: Reports: No New Focal Deficit, Normal Tone, Strength Equal Bilateral, Sensation Intact, Cranial Nerves Intact, Other (shuffling gate). Denies: Normal Gait Psy/Mental Status: Reports: Depressed
--- NOTE | 2018-01-21 15:46 | PCM.SN ---
- Free Text/Narrative Note: Date of service 01/18/2018 Subjective: Patient has no complaints. Family still wishes to pursue involuntary commitment. He is tolerating his diet. At [employer] last night. Nursing without concerns regarding withdrawal symptoms. He is taking his scheduled Ativan. No additional doses needed. Objective Vitals reviewed in chart. He's been afebrile Gen: awake more alert no acute current pulmonary distress. Jaundice continues to improve. HEENT: NCAT, persistent jaundice to sclera, pupils equal round and reactive, EOMI, hearing intact, visual acuity acceptable. Temperature is midline. Neck is supple trachea midline no adenopathy. Lungs: Clear to auscultation throughout no expiratory wheezes and story rhonchi or rales. Symmetric expansion no retractions CV: Heart regular rate and rhythm S1-S2 no ectopy peripheral pulses 2+ and symmetric in the carotid, radial, dorsalis pedis posterior tibials. 1+ bilateral symmetric peripheral edema up to the midshin. No warmth tenderness or Homans sign. GI: Abdominal distention consistent with ascites, small 1 cm umbilical herniation nontender and reducible. No evidence of peritonitis. : No flank pain or tenderness. No pelvic tenderness. No suprapubic distention or tenderness. Neurologi Normal reflexes. No focal deficit. Cranial nerves intact. Equal strength in upper and lower extremities and proximal muscle groups. Psych: Continued depressed mood with flattened affect cultural lack of eye contact however pleasant and conversant answers questions lacks judgment and insight speech is somewhat slurred thoughts are tangential. Labs and studies reviewed noted in the record. Assessment: 1. Acute gastrointestinal bleed/hemorrhage requiring 4 units packed red blood cells and 3 units of plasma for coagulopathy. 2. Alcohol dependence with impending withdrawal 3. Altered mental status secondary to acute on chronic alcoholic encephalopathy , vulnerable adult, need for inpatient detox rehabilitation..4 4. Major depression 5. Hepatosplenomegaly, thrombocytopenia, hyperbilirubinemia, cirrhosis with ascites. Plan: Continue current treatment and plan to arrange hospital hospital transfer for inpatient detoxification for alcohol dependency.
== END 2018-01-19 13:13 | DRG 378 ==
LOC: FB.ED 16:08 → FB.ICU 17:15 → FB.MS 01-15 08:52
PROVIDERS: ADMIT Family Medicine; ATTEND Family Medicine
PROC: 30233N1 Transfusion of Nonautologous Red Blood Cells into Peripheral Vein, Percutaneous Approach (ICD-10-PCS; principal; 2018-01-13)
PROC: 30233K1 Transfusion of Nonautologous Frozen Plasma into Peripheral Vein, Percutaneous Approach (ICD-10-PCS; 2018-01-14)
PROC: 30233N1 Transfusion of Nonautologous Red Blood Cells into Peripheral Vein, Percutaneous Approach (ICD-10-PCS; 2018-01-14)
PROC: 0DJD8ZZ Inspection of Lower Intestinal Tract, Via Natural or Artificial Opening Endoscopic (ICD-10-PCS; 2018-01-15)
PROC: 0DJ08ZZ Inspection of Upper Intestinal Tract, Via Natural or Artificial Opening Endoscopic (ICD-10-PCS; 2018-01-15)
DX: K92.2 Gastrointestinal hemorrhage, unspecified (principal); E72.20 Disorder of urea cycle metabolism, unspecified; D62 Acute posthemorrhagic anemia; I10 Essential (primary) hypertension; K70.31 Alcoholic cirrhosis of liver with ascites; R53.1 Weakness; R19.5 Other fecal abnormalities; F10.20 Alcohol dependence, uncomplicated; R16.2 Hepatomegaly with splenomegaly, not elsewhere classified; R79.89 Other specified abnormal findings of blood chemistry; K92.0 Hematemesis; F12.90 Cannabis use, unspecified, uncomplicated; F17.210 Nicotine dependence, cigarettes, uncomplicated; K70.9 Alcoholic liver disease, unspecified; K57.30 Diverticulosis of large intestine without perforation or abscess without bleeding; E80.6 Other disorders of bilirubin metabolism; E87.6 Hypokalemia; M54.5 Low back pain; G89.29 Other chronic pain; R40.0 Somnolence; Y90.0 Blood alcohol level of less than 20 mg/100 ml
CPT/HCPCS: 36415; 36430; 71045; 76700; 80053; 80305; 81001; 82140; 82150; 82248; 82272; 82607; 82746; 85014; 85018; 85025; 85027; 85610; 86704; 86803; 86850; 86900; 86901; 86920; 86922; 87340; 96361; 96365; 96372; 99285; A9270-GY; C9113; G0480; J2250; J2704; J3010; J3411; J3430; J3480; J7030; J7050; P9016; P9017